=== PATIENT | female | born 1965 | race Hispanic/Latino ===

== ENCOUNTER 2019-04-22 15:39 | Inpatient (IN) | payer OTHER ==
[~2019-04-22] VITALS: Ht 152.4 cm; Wt 78.8 kg
[2019-04-22 16:31] LABS: BASOPHILS % (AUTO) 0.8 % (0.0-5.0); EOSINOPHILS % (AUTO) 1.5 % (0.0-8.0); HEMATOCRIT 38.8 % (36-48); LYMPHOCYTES % (AUTO) 30.4 % (21.0-51.0); MEAN CORPUSCULAR HEMOGLOBIN 26.7 pg (27.0-33.0); MEAN CORPUSCULAR HGB CONC 33.2 g/dL (32.0-36.0); MEAN CORPUSCULAR VOLUME 80.3 fL (79-99); MONOCYTES % (AUTO) 4.7 % (3.0-13.0); NEUTROPHILS % (AUTO) 62.1 % (40.0-77.0); PLATELET COUNT (AUTO) 365 K/uL (130-400); RED BLOOD CELL COUNT(AUTO) 4.83 MIL/uL (4.00-5.50); RED CELL DISTRIBUTION WIDTH 13.5 % (11.0-15.5); WHITE BLOOD COUNT (AUTO) 10.9 K/uL (4.8-10.8)
[2019-04-22 16:50] LABS: CREATININE 0.9 mg/dL (0.5-1.5); POTASSIUM 3.7 mmol/L (3.5-5.1)
[2019-04-22 16:54] LABS: ALBUMIN 3.7 g/dL (3.5-5.0); BILIRUBIN,TOTAL 0.3 mg/dL (0.2-1.0)
[2019-04-22] MEDS ORDERED: ASPIRIN 325 MG TABLET ONE (17:23)
[2019-04-22] MEDS ORDERED: IOHEXOL 350 MG/ML 100ML INFUS..BTL IV ONE (17:47)
[2019-04-22] MEDS ORDERED: ACETAMINOPHEN 325 MG TAB PO PRN ×2 (19:45)
[2019-04-22] MEDS ORDERED: IPRATROPIUM/ALBUTEROL SULFATE 3 ML SOLUTION IH PRN (19:45)
[2019-04-22] MEDS ORDERED: LACTULOSE 20 GM/30 ML UDCUP PO PRN (19:45)
[2019-04-22 21:05] VITALS: BP 137/83
--- NOTE | 2019-04-22 21:05 | NUR ---
NEW ADMIT PATIENT ARRIVED TO ROOM 413 AAOX3 FAMILY AT SIDE. ADMIT FOR NEW ONSET LEFT LUNG MASS. PATIENT STATES SHE ONLY NOTICED PAIN IN INHALATION YESTERDAY BUT DID HAVE AND EPISODE OF COUGHING UP BLOOD ONE NIGHT. SHE HAS NOT HAD ANY COUGHED UP ANY MORE BLOOD SINCE. SHE ALSO STATED SHE HAS HAD AND EPISODE A COUPLE OF DAYS AGO OF MOMENTARY CONFUSION AND UNABLE TO PRONOUNCE WORDS CORRECTLY. PATIENT STATES SHE DOES NOT SUFFER FROM HYPERTENSION , BUT DID WANT TO MENTION ALL OF THIS TO THE MD TOMORROW SINCE SHE DID NOT TELL THE ED DOCTOR THIS.
[2019-04-22] MEDS: MORPHINE SULFATE 2 MG/ML 1ML SYG IV PRN (21:13)
[2019-04-22] MEDS: FAMOTIDINE 20MG TAB 20 MG TAB PO SCH (21:13)
[2019-04-22] MEDS: ONDANSETRON HCL 4 MG/2 ML VIAL IV PRN (21:13)
--- NOTE | 2019-04-22 22:36 | NUR ---
PULMONARY CONSULT SPOKE TO DR DEJAN ESTRADA ABOUT NEW CONSULT FOR PATIENT DIEGO. I DID INFORM HIM OF CT SCAN RESULTS AND HE STATE HE WOULD SEE IN AM AND POSSIBLE TO A BRONCHOSCOPY WITH BIOPSY IN AM.
[2019-04-22 23:55] VITALS: BP 138/81
[2019-04-23] VITALS (26 sets, daily range): BP systolic 105–142; BP diastolic 67–88
[2019-04-23] MEDS: ONDANSETRON HCL 4 MG/2 ML VIAL IV PRN (03:40)
[2019-04-23] MEDS: MORPHINE SULFATE 2 MG/ML 1ML SYG IV PRN ×2 (03:40→23:25)
[2019-04-23 06:00] LABS: EOSINOPHILS % (AUTO) 2.1 % (0.0-8.0); HEMATOCRIT 38.4 % (36-48); LYMPHOCYTES % (AUTO) 37.1 % (21.0-51.0); MEAN CORPUSCULAR HEMOGLOBIN 27.3 pg (27.0-33.0); MEAN CORPUSCULAR HGB CONC 32.8 g/dL (32.0-36.0); MEAN CORPUSCULAR VOLUME 83.1 fL (79-99); MONOCYTES % (AUTO) 6.6 % (3.0-13.0); NEUTROPHILS % (AUTO) 52.7 % (40.0-77.0); PLATELET COUNT (AUTO) 354 K/uL (130-400); RED BLOOD CELL COUNT(AUTO) 4.62 MIL/uL (4.00-5.50); RED CELL DISTRIBUTION WIDTH 13.8 % (11.0-15.5); WHITE BLOOD COUNT (AUTO) 10.6 K/uL (4.8-10.8)
[2019-04-23 06:13] LABS: CREATININE 0.9 mg/dL (0.5-1.5); POTASSIUM 4.3 mmol/L (3.5-5.1)
[2019-04-23 08:41] LABS: INR 0.98 (0.85-1.15); PARTIAL THROMBOPLASTIN TIME 24.8 SEC (26.3-35.5); PROTHROMBIN TIME 10.6 SEC (9.6-11.6)
[2019-04-23] MEDS: ENOXAPARIN SODIUM 40 MG/0.4 ML SYRINGE SQ SCH (09:00)
[2019-04-23] MEDS: FAMOTIDINE 20MG TAB 20 MG TAB PO SCH ×2 (09:00→22:03)
[2019-04-23] MEDS ORDERED: SUCCINYLCHOLINE 200MG/10ML SYR ONE (09:19)
[2019-04-23] MEDS ORDERED: LIDOCAINE PF 2% 5ML ABBOJECT ONE (09:19)
[2019-04-23] MEDS ORDERED: ROCURONIUM 10MG/1ML SYR 10 MG/ML ML ONE (09:19)
[2019-04-23] MEDS ORDERED: PROPOFOL 10 MG/ML 20ML VIAL IV ONE (09:19)
[2019-04-23] MEDS ORDERED: FENTANYL CITRATE PF 50 MCG/1 ML 2ML VIAL ONE (09:20)
[2019-04-23] MEDS ORDERED: GLYCOPYRROLATE 1 MG/5 ML SYRINGE ONE (09:21)
[2019-04-23] MEDS ORDERED: PHENYLEPHRINE HCL 10 MG/ML 1ML VIAL IV ONE (09:40)
[2019-04-23 14:15] LABS: SPECIMENTYPE,BODY FLUID OTHER
[2019-04-23 14:16] LABS: APPEARANCE BODY FLUID CLOUDY (CLEAR); BODY FLUID WBC 321 /cu. mm.; COLOR,BODY FLUID PINK (LT YELLOW); TOTAL VOLUME,BODY FLUID 15 mL
[2019-04-23 14:17] LABS: BODY FLUID RBC 349 /cu. mm.
[2019-04-23 14:19] LABS: BF LYMPHOCYTE 11 %; BF MESOTHELIAL 88 %; BF MONOCYTE 1 %
--- NOTE | 2019-04-23 14:30 | NUR ---
INITIAL SW met with patient. Patient lives with spouse, Percy Sun, [phone]. No home services or DME. Patient is able to complete ADL's and drives. PCP is Dr. Percy Campo at [facility]. Pharmacy is [facility] or [facility] in [place]. DCP is home. Patient has no insurance or benefits. She is a [place] citizen and has worked in the past. Patient was provided with community resources for post hospitalization follow up. Patient was also provided with Good RX card for prescriptions and educated on [facility] $4 medication program and [facility] $5 medication program. Patient is being assisted by [employer] for financial matters. Addendum: 04/23/19 at 1432 by MELINA RUANO SS Amended: Links added.
[2019-04-24] VITALS (7 sets, daily range): BP systolic 123–148; BP diastolic 73–87
[2019-04-24 04:37] LABS: BASOPHILS % (AUTO) 0.7 % (0.0-5.0); EOSINOPHILS % (AUTO) 1.5 % (0.0-8.0); HEMATOCRIT 36.9 % (36-48); LYMPHOCYTES % (AUTO) 34.4 % (21.0-51.0); MEAN CORPUSCULAR HEMOGLOBIN 26.8 pg (27.0-33.0); MEAN CORPUSCULAR HGB CONC 32.2 g/dL (32.0-36.0); MEAN CORPUSCULAR VOLUME 83.1 fL (79-99); MONOCYTES % (AUTO) 5.9 % (3.0-13.0); NEUTROPHILS % (AUTO) 57.1 % (40.0-77.0); PLATELET COUNT (AUTO) 325 K/uL (130-400); RED BLOOD CELL COUNT(AUTO) 4.44 MIL/uL (4.00-5.50); RED CELL DISTRIBUTION WIDTH 13.9 % (11.0-15.5); WHITE BLOOD COUNT (AUTO) 11.3 K/uL (4.8-10.8)
[2019-04-24 05:01] LABS: CREATININE 0.9 mg/dL (0.5-1.5); POTASSIUM 3.8 mmol/L (3.5-5.1)
[2019-04-24] MEDS: ONDANSETRON HCL 4 MG/2 ML VIAL IV PRN (08:23)
[2019-04-24] MEDS: MORPHINE SULFATE 2 MG/ML 1ML SYG IV PRN (08:23)
[2019-04-24] MEDS: FAMOTIDINE 20MG TAB 20 MG TAB PO SCH ×2 (08:33→21:18)
[2019-04-24] MEDS: ENOXAPARIN SODIUM 40 MG/0.4 ML SYRINGE SQ SCH (08:34)
[2019-04-24] MEDS ORDERED: KETOROLAC TROMETHAMINE 15MG/ML IM PRN (18:15)
--- NOTE | 2019-04-25 | NUR ---
Kept patient NPO at this time, patient demonstrated understanding.
[2019-04-25 03:10] VITALS: BP 132/71
[2019-04-25 06:09] LABS: BASOPHILS % (AUTO) 0.9 % (0.0-5.0); EOSINOPHILS % (AUTO) 4.2 % (0.0-8.0); HEMATOCRIT 37.5 % (36-48); LYMPHOCYTES % (AUTO) 33.4 % (21.0-51.0); MEAN CORPUSCULAR HEMOGLOBIN 26.1 pg (27.0-33.0); MEAN CORPUSCULAR HGB CONC 31.5 g/dL (32.0-36.0); MONOCYTES % (AUTO) 7.5 % (3.0-13.0); NEUTROPHILS % (AUTO) 53.4 % (40.0-77.0); PLATELET COUNT (AUTO) 319 K/uL (130-400); RED BLOOD CELL COUNT(AUTO) 4.52 MIL/uL (4.00-5.50); RED CELL DISTRIBUTION WIDTH 13.6 % (11.0-15.5); WHITE BLOOD COUNT (AUTO) 9.6 K/uL (4.8-10.8)
[2019-04-25 06:32] LABS: PARTIAL THROMBOPLASTIN TIME 24.8 SEC (26.3-35.5); PROTHROMBIN TIME 10.8 SEC (9.6-11.6)
[2019-04-25 06:34] LABS: CREATININE 0.8 mg/dL (0.5-1.5); POTASSIUM 3.9 mmol/L (3.5-5.1)
--- NOTE | 2019-04-25 07:54 | NUR ---
Patient remained NPO,obtained consent, endorsed care to incoming NOD using SBAr ,all questions answered.
[2019-04-25 08:01] VITALS: BP 144/89
[2019-04-25] MEDS: FAMOTIDINE 20MG TAB 20 MG TAB PO SCH (08:34)
--- NOTE | 2019-04-25 09:00 | NUR ---
DISCUSSED DC PLAN WITH PATIENT PATIENT OK TO DC POST BIOPSY TODAY PER DR. LANE TO FOLLOW UP IN CLINIC PLAN TO GET [facility] TO COVER COSTS PT IS ACTIVE, HARDWORKING, AND ENERGETIC, STATES FEELS GOOD AND WILL TACKLE ANY UPCOMING CHALLENGES WITH OPTIMISM. NO DEFINITE DIAGNOSIS YET Addendum: 04/25/19 at 1230 by RICHIE COVINGTON RN Amended: Links added.
--- NOTE | 2019-04-25 09:36 | NUR ---
PROCEDURE PATIENT SCHEDULED FOR CT GD LUNG MASS BIOPSY FOR TODAY. PATIENT HAD A BRONCHOSCOPY DONE 04/23/[address] Asael MIRAMONTES NOTIFIED AND RESCHEDULED BIOPSY FOR TOMORROW. OBTAIN PATHOLOGY RESULTS TO DETERMINE IF LUNG BIOPSY IS NEEDED FOR DIAGNOSIS. PROCEDURE OUTCOME REPORTED TO Luis Armando HERNANDES RN.
--- NOTE | 2019-04-25 10:00 | NUR ---
PROCEDURE PATHOLOGY REPORT FROM BRONCHOSCOPY REPORTED NO MALIGNANCY FROM SAMPLES. DR Monico LANE SPOKE WITH DR MIRAMONTES AND PATIENT TRANSPORTED TO CT FOR LT LUNG BIOPSY. Luis Armando HERNANDES RN NOTIFIED.
[2019-04-25] MEDS ORDERED: LIDOCAINE HCL 1% 10 ML VIAL ONE (11:00)
--- NOTE | 2019-04-25 11:15 | NUR ---
CT GD LT LUNG BX BX PROCEDURE PERFORMED BY DR Temitope RASHID. PUNCTURE SITE LT CHEST AND PATIENT TOLERATED PROCEDURE WELL. SPECIMEN X 4 COLLECTED AND SENT TO LAB. END OF PROCEDURE AT 1050. BIOPSY NEEDLE REMOVED AND DRESSING APPLIED. NO BLEEDING NOTED. REPORT GIVEN TO Luis Armando HERNANDES RN AND PATIENT TRANSPORTED TO [facility] VIA BED AT 1115. AAO X3 WITH NO C/O PAIN.
[2019-04-25 11:30] VITALS: BP 140/77
[2019-04-25 11:45] VITALS: BP 142/77
[2019-04-25 12:00] VITALS: BP 145/84
[2019-04-25 12:15] VITALS: BP 138/74
[2019-04-25] MEDS ORDERED: KETO10 PO (14:13)
--- NOTE | 2019-04-25 17:09 | NUR ---
Dc'd to self care after SL removed intact; written and verbal instructions provided, prescription to preferred pharmacy electronically. Transported to private car via w/c without incident.
== END 2019-04-25 17:17 | disposition home or self-care (01) | DRG 167 ==
LOC: EDH 15:39 → EDHIP 15:40 → OBSVTOIN 15:40 → 4CH 20:35
PROVIDERS: ADMIT Internal Medicine; ATTEND Internal Medicine
PROC: 0BBH8ZX Excision of Lung Lingula, Via Natural or Artificial Opening Endoscopic, Diagnostic (ICD-10-PCS; 2019-04-23)
PROC: 0B9H8ZX Drainage of Lung Lingula, Via Natural or Artificial Opening Endoscopic, Diagnostic (ICD-10-PCS; 2019-04-23)
PROC: 0BDH8ZX Extraction of Lung Lingula, Via Natural or Artificial Opening Endoscopic, Diagnostic (ICD-10-PCS; 2019-04-23)
PROC: 0BBL3ZX Excision of Left Lung, Percutaneous Approach, Diagnostic (ICD-10-PCS; principal; 2019-04-25)
DX: R91.8 Other nonspecific abnormal finding of lung field (principal); J94.2 Hemothorax
CPT/HCPCS: 31622; 31623; 31628; 32405; 36415; 71045; 71275; 76000; 80048; 80053; 82550; 84484; 85025; 85378; 85610; 85730; 87071; 87116; 87205; 87206; 88173; 88305; 88312; 89051; 93005; 94664; A4606; G0378; J0330; J1650; J1885; J2001; J2370; J2405; J2704; J3010; J3490; J7030; Q9967

== ENCOUNTER 2019-07-19 13:00 | Inpatient (IN) | payer MEDICAID ==
[~2019-07-19] VITALS: Ht 152.4 cm; Wt 84.1 kg
[2019-07-19 11:06] VITALS: BP 152/75
[2019-07-19 13:59] LABS: BASOPHILS % (AUTO) 0.6 % (0.0-5.0); EOSINOPHILS % (AUTO) 1.8 % (0.0-8.0); HEMATOCRIT 36.8 % (36-48); LYMPHOCYTES % (AUTO) 27.6 % (21.0-51.0); MEAN CORPUSCULAR HEMOGLOBIN 27.6 pg (27.0-33.0); MEAN CORPUSCULAR HGB CONC 32.3 g/dL (32.0-36.0); MEAN CORPUSCULAR VOLUME 85.4 fL (79-99); NEUTROPHILS % (AUTO) 63.5 % (40.0-77.0); PLATELET COUNT (AUTO) 479 K/uL (130-400); RED BLOOD CELL COUNT(AUTO) 4.31 MIL/uL (4.00-5.50); RED CELL DISTRIBUTION WIDTH 14.9 % (11.0-15.5); WHITE BLOOD COUNT (AUTO) 11.4 K/uL (4.8-10.8)
[2019-07-19 14:13] LABS: ALBUMIN 3.8 g/dL (3.5-5.0); BILIRUBIN,TOTAL 0.3 mg/dL (0.2-1.0); CREATININE 0.8 mg/dL (0.5-1.5); POTASSIUM 3.7 mmol/L (3.5-5.1); TOTAL PROTEIN, SERUM 8.6 g/dL (6.0-8.3)
[2019-07-19 14:17] LABS: INR 1.01 (0.85-1.15); PARTIAL THROMBOPLASTIN TIME 27.9 SEC (26.3-35.5); PROTHROMBIN TIME 10.9 SEC (9.6-11.6)
--- NOTE | 2019-07-20 10:43 | NUR ---
RE: ABNORMAL LABS REPORTED LABS TO MEGHAN DONIS RN (WBC 11.4. HGB 11.9/HCT 36.8, PLT 479) NO NEW ORDERS RECEIVED. MAY PROCEED WITH SURGERY.
[2019-07-23] VITALS (22 sets, daily range): BP systolic 90–145; BP diastolic 45–84
[2019-07-23] MEDS ORDERED: LACTATED RINGERS 1000ML 1,000 ML IV ONE (11:04)
[2019-07-23] MEDS ORDERED: CEFUROXIME SODIUM 1.5 GM VIAL ONE (11:04)
[2019-07-23] MEDS ORDERED: DEXAMETHASONE SOD PHOSPHATE 10MG/ML 1ML VIAL ONE (12:38)
[2019-07-23] MEDS ORDERED: LIDOCAINE PF 2% 5ML ABBOJECT ONE (12:38)
[2019-07-23] MEDS ORDERED: ONDANSETRON HCL 4 MG/2 ML VIAL ONE (12:38)
[2019-07-23] MEDS ORDERED: GLYCOPYRROLATE 1 MG/5 ML SYRINGE ONE (12:39)
[2019-07-23] MEDS ORDERED: FENTANYL CITRATE PF 50 MCG/1 ML 2ML VIAL ONE (12:39)
[2019-07-23] MEDS ORDERED: KETAMINE 50MG/ML SYRINGE 50 MG/ML DISP.SYRIN IV ONE (12:39)
[2019-07-23] MEDS ORDERED: PROPOFOL 10 MG/ML 20ML VIAL IV ONE (12:39)
[2019-07-23] MEDS ORDERED: ROCURONIUM 10MG/1ML SYR 10 MG/ML ML ONE ×2 (12:39→13:44)
[2019-07-23] MEDS ORDERED: NEOSTIGMINE 5MG/5ML SYR IV ONE (12:39)
[2019-07-23] MEDS ORDERED: MIDAZOLAM HCL 1 MG/ML 2ML VIAL ONE (12:39)
[2019-07-23] MEDS ORDERED: ACETAMINOPHEN 325 MG TAB PO PRN (13:30)
[2019-07-23] MEDS ORDERED: EPHEDRINE SULFATE 50 MG/ML AMPULE ONE (13:41)
[2019-07-23] MEDS ORDERED: CEFAZOLIN SODIUM 1 GM VIAL ONE (14:03)
[2019-07-23] MEDS ORDERED: ROPIVACAINE 0.5% 5MG/ML 30ML IJ ONE (14:22)
[2019-07-23] MEDS ORDERED: Q-PUMP 1 EACH IRRIG SCH (14:30)
[2019-07-23] MEDS ORDERED: FENTANYL CITRATE PF 50 MCG/1 ML 5ML AMP IV ONE (14:31)
[2019-07-23] MEDS ORDERED: MEPERIDINE-PF 25 MG/ML SYG ONE (15:03)
--- NOTE | 2019-07-23 16:30 | NUR ---
NOTE ARRIVED FROM PACU. 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 [facility]. TWO CHEST TUBES Y CONNECT TO WATER SEAL SYSTEM, CONNECTED TO 20 CM WATER SUCTION. NO LEAKS DETECTED. DRAINAGE AMOUNT AT 115 CC LINE. F/C NO URINE PRESENT. SL LAF AND DRESSING TO LEFT UPPER ARM FROM BRACHIAL A-LINE THAT WAS PRESENT THERE DURING SURGERY BUT WAS REMOVED PRIOR TO BRINGING THE PATIENT UP TO FOURTH FLOOR RM 416. PATIENT AWAKE, ALERT ORIENTED X3. A LITTLE NERVOUS AND IN A LOT OF PAIN. PAIN PUMP WITH BUPIVICAINE STARTED AT 6CC/HR TO SMALL CHEST CATHETER PRESENT. WILL START MEDICATING PRN PAIN NOW. PACU NURSE WAS HESITANT TO START IT PACU BECAUSE HER SYSTOLIC BP WAS ONLY IN THE LOW 90'S. SISTER AT HER SIDE.
[2019-07-23] MEDS ORDERED: KETOROLAC TROMETHAMINE 30MG/ML ONE (16:48)
[2019-07-23] MEDS ORDERED: TRAMADOL HCL 50 MG TABLET ONE (17:35)
[2019-07-23] MEDS: KETOROLAC TROMETHAMINE 30MG/ML IV SCH (18:00)
--- NOTE | 2019-07-23 19:04 | NUR ---
NOTE NOTIFIED DR AVITIA ABOUT CONSULT. HE WILL SEE HER TOMORROW. WAS STARTED ON CLEAR LIQUIDS WILL ADVANCE TOLERATED. SPOKE TO MEGHAN WITH DR VU ABOUT C/O SEVERE PAIN BUT THEY WILL NOT ORDER ANYTHING EXTRA BECAUSE THEY'RE WORRIED ABOUT HEMODYNAMIC IMBALANCE DUE TO IV NARCOTIC.
[2019-07-23] MEDS: TRAMADOL HCL 50 MG TABLET PO PRN (19:31)
[2019-07-23] MEDS: CEFAZOLIN SODIUM 1 GM VIAL IVP SCH (20:08)
[2019-07-24] MEDS: KETOROLAC TROMETHAMINE 30MG/ML IV SCH ×5 (00:31→23:59)
[2019-07-24] MEDS: TRAMADOL HCL 50 MG TABLET PO PRN ×2 (01:44→10:16)
[2019-07-24 03:34] VITALS: BP 105/68
[2019-07-24] MEDS: CEFAZOLIN SODIUM 1 GM VIAL IVP SCH ×2 (04:20→12:09)
[2019-07-24 04:26] LABS: HEMATOCRIT 30.2 % (36-48); MEAN CORPUSCULAR HEMOGLOBIN 27.8 pg (27.0-33.0); MEAN CORPUSCULAR HGB CONC 32.5 g/dL (32.0-36.0); MEAN CORPUSCULAR VOLUME 85.6 fL (79-99); RED BLOOD CELL COUNT(AUTO) 3.53 MIL/uL (4.00-5.50); WHITE BLOOD COUNT (AUTO) 13.9 K/uL (4.8-10.8)
[2019-07-24 04:46] LABS: CREATININE 0.9 mg/dL (0.5-1.5); POTASSIUM 4.9 mmol/L (3.5-5.1)
[2019-07-24] MEDS ORDERED: ONDANSETRON HCL 4 MG/2 ML VIAL ONE (05:13)
[2019-07-24] MEDS ORDERED: ONDANSETRON HCL 4 MG/2 ML VIAL IVP STA (05:19)
--- NOTE | 2019-07-24 07:45 | NUR ---
AM ASSESSMENT PT LAYING IN BED, WATCHING TV. A/O X 3. NO SOB. NO DISTRESS NOTED, O2 NC @ 2L. DENIES CHEST PAIN OR DISCOMFORT. DENIES PALPITATIONS. TELE: -JUAREZ. C/O INCISIONAL DISCOMFORT, DENIES INCISIONAL PAIN @ THIS TIME. STERNAL INCISION DSG DRY & INTACT. NO DRAINAGE NOTED. CHEST TUBE PATENT & DRAINING. NO AIR LEAK. CHEST TUBE TO SUCTION @ 20 ML. DSG DRY & INTACT. Q PUMP IN PLACE, @ 6 ML/HR. STERNAL PRECAUTIONS REINFORCED. IS @ 550 ML. PURPOSE & IMPORTANCE OF IS REINFORCED. DIET TO BE ADVANCED TO SOLIDS THIS AM. DENIES N/V AND/OR DIARRHEA. UP W/ASSISTANCE. INSTRUCTED TO CALL FOR ASSISTANCE. CALL GÓMEZ W/IN REACH.
[2019-07-24 08:45] VITALS: BP 101/58
[2019-07-24 10:47] VITALS: BP 115/67
--- NOTE | 2019-07-24 12:41 | NUR ---
DCP CM met with pt in room discussed dc plans. Pt is independent prior to admission, lives at home with spouse. Denies any equipments/services. Feels safe to go back home, spouse able to assist with transportation and needs as necessary. DC plan to home once stable. CM to cont to follow up. Addendum: 07/24/19 at 1243 by ELIZABETH MURCIA LVN CM Amended: Links added.
[2019-07-24 16:20] VITALS: BP 106/64
--- NOTE | 2019-07-24 16:20 | NUR ---
PULSE PULSE RECORDED 42, CORRECTION PULSE 88.
[2019-07-24 20:16] VITALS: BP 106/59
[2019-07-24 23:35] VITALS: BP 118/61
[2019-07-25] MEDS: TRAMADOL HCL 50 MG TABLET PO PRN ×3 (00:19→20:43)
[2019-07-25 04:26] VITALS: BP 116/66
[2019-07-25] MEDS: KETOROLAC TROMETHAMINE 30MG/ML IV SCH ×3 (06:03→18:12)
[2019-07-25 08:00] VITALS: BP 106/64
[2019-07-25 12:04] VITALS: BP_SYST 106; BP_SYST 110; BP_DIAS 64; BP_DIAS 67
[2019-07-25] MEDS: POLYETHYLENE GLYCOL 3350 17 GM POWD.PACK PO PRN (14:23)
[2019-07-25 16:00] VITALS: BP 113/60
--- NOTE | 2019-07-25 18:55 | NUR ---
Received report pt,with left sided chest tube to water seal and with Q pump infusing @12ml/hr.
[2019-07-25] MEDS: DOCUSATE SODIUM 100 MG CAP PO SCH (20:37)
[2019-07-25 20:48] VITALS: BP 110/53
[2019-07-26] MEDS: KETOROLAC TROMETHAMINE 30MG/ML IV SCH
[2019-07-26 00:31] VITALS: BP 99/57
[2019-07-26] MEDS: TRAMADOL HCL 50 MG TABLET PO PRN ×4 (02:57→22:56)
[2019-07-26 04:22] VITALS: BP 108/63
[2019-07-26 08:00] VITALS: BP 118/65
[2019-07-26] MEDS: DOCUSATE SODIUM 100 MG CAP PO SCH ×2 (09:37→21:02)
[2019-07-26 11:51] VITALS: BP 123/63
[2019-07-26 16:00] VITALS: BP 115/69
[2019-07-26 20:00] VITALS: BP 132/70
[2019-07-27] VITALS (7 sets, daily range): BP systolic 111–127; BP diastolic 63–75
[2019-07-27] MEDS: TRAMADOL HCL 50 MG TABLET PO PRN ×4 (02:56→22:57)
[2019-07-27] MEDS: DOCUSATE SODIUM 100 MG CAP PO SCH ×2 (09:21→20:30)
[2019-07-27] MEDS: POLYETHYLENE GLYCOL 3350 17 GM POWD.PACK PO PRN (09:22)
[2019-07-27] MEDS ORDERED: ENOXAPARIN SODIUM 30 MG/0.3 ML SQ SCH (21:00)
--- NOTE | 2019-07-28 02:09 | NUR ---
Patient resting well, respirations even and non labored.Call light placed within reach.
[2019-07-28 03:21] VITALS: BP 122/72
[2019-07-28] MEDS: TRAMADOL HCL 50 MG TABLET PO PRN ×2 (05:13→13:06)
--- NOTE | 2019-07-28 07:45 | NUR ---
ASSESSMENT ENCOUNTERED PT A&OX3, CALM COOPERATIVE AND DOES NOT APPEAR TO BE IN ANY DISTRESS NOR ANY NEURO DEFICITS PRESENT. PT DENIES DIZZINESS, LIGHTHEADEDNESS BUT DOES C/O DYSPNEA ON EXERTION. STERNAL DRESSING DRY AND INTACT, CHEST TUBE SITES DRY AND INTACT. PT IS AMBULATORY, GAIT SLOW BUT STEADY WITH ASSIST. CALL LIGHT WITHIN REACH, FAMILY AT BEDSIDE.
[2019-07-28 08:00] VITALS: BP 125/68
[2019-07-28 11:39] VITALS: BP 116/72
[2019-07-28 16:00] VITALS: BP 129/77
--- NOTE | 2019-07-28 17:51 | NUR ---
DISCHARGE INSTRUCTIONS GIVEN, PIV REMOVED AND INTACT, CHEST TUBE SUTURES REMOVED AND STERI STRIPS APPLIED, DISCHARGED HOME TO FAMILY VEHICLE VIA WHEELCHAIR.
== END 2019-07-28 17:56 | disposition home or self-care (01) | DRG 651 ==
LOC: EDSTATUS 13:00 → DAHIP 07-23 10:30 → 4CH 07-23 16:50
PROVIDERS: ADMIT Thoracic Surgery (Cardiothoracic Vascular Surgery); ATTEND Thoracic Surgery (Cardiothoracic Vascular Surgery)
PROC: 0BBG0ZZ Excision of Left Upper Lung Lobe, Open Approach (ICD-10-PCS; 2019-07-23)
PROC: 02BN0ZZ Excision of Pericardium, Open Approach (ICD-10-PCS; principal; 2019-07-23 12:29)
PROC: 07TM0ZZ Resection of Thymus, Open Approach (ICD-10-PCS; 2019-07-23 12:29)
PROC: 0BBH0ZZ Excision of Lung Lingula, Open Approach (ICD-10-PCS; 2019-07-23 12:29)
DX: D15.0 Benign neoplasm of thymus (principal); D64.9 Anemia, unspecified; D72.829 Elevated white blood cell count, unspecified; E78.00 Pure hypercholesterolemia, unspecified; E87.70 Fluid overload, unspecified; R91.8 Other nonspecific abnormal finding of lung field; R09.02 Hypoxemia; Z88.2 Allergy status to sulfonamides; Z88.8 Allergy status to other drugs, medicaments and biological substances
CPT/HCPCS: 36415; 71045; 71046; 80048; 80053; 85025; 85027; 85610; 85730; 88184; 88185; 88305; 88307; 93005; 94010; 97039; A7048; G0378; J0690; J0697; J1100; J1650; J1885; J2001; J2175; J2250; J2405; J2704; J2710; J2795; J3010; J3490; J7030; J7040; J7120

== ENCOUNTER 2019-12-30 22:41 | Emergency (ER) | payer MEDICAID ==
[~2019-12-30 22:41] MED LIST: GABA-533 PO
[2019-12-31 00:12] LABS: APPEARANCE,URINE Cloudy (CLEAR); BILIRUBIN,URINE Negative (NEGATIVE); COLOR,URINE Yellow (YELLOW); GLUCOSE, URINE (UA) Negative (NEGATIVE); KETONES,URINE Negative (NEGATIVE); LEUKOCYTE ESTERASE ,URINE Moderate (NEGATIVE); NITRATE,URINE Negative (NEGATIVE); OCCULT BLOOD,URINE Nonhemolyzed Trace (NEGATIVE); PH,URINE 5.5 (5.0-8.0); PROTEIN,URINE Trace mg/dL (NEGATIVE)
[2019-12-31 00:21] LABS: CREATININE 0.8 mg/dL (0.5-1.5); POTASSIUM 3.9 mmol/L (3.5-5.1)
[2019-12-31 00:23] LABS: INR 1.06 (0.85-1.15); PARTIAL THROMBOPLASTIN TIME 25.2 SEC (26.3-35.5); PROTHROMBIN TIME 11.4 SEC (9.6-11.6)
[2019-12-31 00:25] LABS: ALBUMIN 3.3 g/dL (3.5-5.0); BILIRUBIN,TOTAL 0.2 mg/dL (0.2-1.0)
[2019-12-31 00:39] LABS: BASOPHILS % (AUTO) 1.1 % (0.0-5.0); EOSINOPHILS % (AUTO) 2.8 % (0.0-8.0); LYMPHOCYTES % (AUTO) 11.7 % (21.0-51.0); MEAN CORPUSCULAR HGB CONC 30.9 g/dL (32.0-36.0); MEAN CORPUSCULAR VOLUME 77.6 fL (79-99); MONOCYTES % (AUTO) 6.2 % (3.0-13.0); NEUTROPHILS % (AUTO) 77.6 % (40.0-77.0); PLATELET COUNT (AUTO) 434 K/uL (130-400); RED BLOOD CELL COUNT(AUTO) 4.25 MIL/uL (4.00-5.50); RED CELL DISTRIBUTION WIDTH 15.8 % (11.0-15.5); WHITE BLOOD COUNT (AUTO) 10.7 K/uL (4.8-10.8)
[2019-12-31 00:42] LABS: BACTERIA,URINE Moderate /HPF (None Seen); MUCUS,URINE Moderate LPF (None Seen); SQUAMOUS EPITHELIAL CELL,UR Few /HPF (0-2); WBC,URINE 26-50 /HPF (0-1)
[2019-12-31] MEDS ORDERED: CEFTRIAXONE SODIUM 2 GM VIAL ONE (01:05)
[2019-12-31] MEDS ORDERED: SODIUM CHLORIDE 0.9% 50 ML IV ONE (01:06)
[2019-12-31] MEDS ORDERED: IOHEXOL 350 MG/ML 100ML INFUS..BTL IV ONE (01:17)
== END 2019-12-31 02:50 | disposition home or self-care (01) ==
LOC: EDH 22:41
DX: N39.0 Urinary tract infection, site not specified (principal); K59.00 Constipation, unspecified; J90 Pleural effusion, not elsewhere classified; R91.1 Solitary pulmonary nodule; Z88.1 Allergy status to other antibiotic agents; Z88.8 Allergy status to other drugs, medicaments and biological substances; Z98.890 Other specified postprocedural states
CPT/HCPCS: 36415 ×2; 71045; 71260; 74177; 80053; 81001; 83605; 83690; 84484; 85025; 85610; 85730; 87040 ×2; 87088; 93005; 96374; 99285; J0696; Q9967

== ENCOUNTER 2020-01-19 22:39 | Inpatient (IN) | payer MEDICAID ==
[~2020-01-19] VITALS: Ht 152.4 cm; Wt 64.9 kg
[2020-01-19] MEDS ORDERED: ASPIRIN 325 MG TABLET ONE (23:32)
[2020-01-19] MEDS ORDERED: MORPHINE SULFATE 2 MG/ML 1ML SYG ONE (23:33)
[2020-01-19] MEDS ORDERED: NITROGLYCERIN 1GM/1 INCH PACKET TD ONE (23:33)
[2020-01-19 23:35] LABS: BASOPHILS % (AUTO) 0.2 % (0.0-5.0); EOSINOPHILS % (AUTO) 0.1 % (0.0-8.0); HEMATOCRIT 25.7 % (36-48); LYMPHOCYTES % (AUTO) 2.2 % (21.0-51.0); MEAN CORPUSCULAR HGB CONC 31.1 g/dL (32.0-36.0); MEAN CORPUSCULAR VOLUME 76.9 fL (79-99); MONOCYTES % (AUTO) 0.9 % (3.0-13.0); NEUTROPHILS % (AUTO) 88.8 % (40.0-77.0); NUCLEATED RED BLOOD CELLS 0.3 % (0.0-0.19); PLATELET COUNT (AUTO) 150 K/uL (130-400); RED BLOOD CELL COUNT(AUTO) 3.34 MIL/uL (4.00-5.50); RED CELL DISTRIBUTION WIDTH 16.1 % (11.0-15.5); WHITE BLOOD COUNT (AUTO) 16.2 K/uL (4.8-10.8)
[2020-01-19] MEDS ORDERED: IOHEXOL 350 MG/ML 100ML INFUS..BTL IV ONE (23:36)
[2020-01-19] MEDS ORDERED: HEPARIN SODIUM 1000UNIT/ML 10ML VIAL ONE (23:36)
[2020-01-19] MEDS ORDERED: IOHEXOL-350 50ML VIAL IV ONE (23:36)
[2020-01-19] MEDS ORDERED: LIDOCAINE HCL 2% 20ML ONE (23:36)
[2020-01-19 23:47] LABS: INR 1.06 (0.85-1.15); PARTIAL THROMBOPLASTIN TIME 27.3 SEC (26.3-35.5); PROTHROMBIN TIME 11.4 SEC (9.6-11.6)
[2020-01-19 23:50] LABS: ALBUMIN 3.2 g/dL (3.5-5.0); BILIRUBIN,TOTAL 0.4 mg/dL (0.2-1.0); TOTAL PROTEIN, SERUM 7.8 g/dL (6.0-8.3)
[2020-01-19] MEDS ORDERED: MIDAZOLAM HCL 5 MG/ML 2ML VIAL IV ONE (23:55)
[2020-01-19] MEDS ORDERED: SODIUM CHLORIDE 0.9% 1000ML 1,000 ML IV ONE (23:58)
[2020-01-20 00:02] LABS: POTASSIUM 9.4 mmol/L (3.5-5.1)
[2020-01-20 00:03] LABS: CREATININE 9.5 mg/dL (0.5-1.5)
[2020-01-20] MEDS ORDERED: INSULIN HUMULIN R 100 UNIT/ML 3ML ONE ×2 (00:04→00:15)
[2020-01-20 00:05] LABS: RAPID GROUP A STREP NEGATIVE (NEGATIVE)
[2020-01-20 00:05] LABS: B-TYPE NATRIURETIC PEPTIDE 502 pg/mL (0-100)
[2020-01-20] MEDS ORDERED: NOREPINEPHRINE 4MG/NS 250ML 250 ML IV ONE ×3 (00:05→16:12)
[2020-01-20] MEDS ORDERED: DEXTROSE 50%-WATER 50 ML DISP.SYRIN IV ONE ×3 (00:07→04:46)
[2020-01-20] MEDS ORDERED: IOHEXOL-350 75 ML VIAL IV ONE (00:09)
[2020-01-20] MEDS ORDERED: SODIUM CHLORIDE 0.9% 100 ML IV ONE (00:15)
[2020-01-20] MEDS ORDERED: MIDAZOLAM HCL 5 MG/ML 2ML VIAL IV ONE (00:19)
[2020-01-20 00:21] LABS: CRP QUANTITATIVE 187.9 mg/L (0.00-9.0)
[2020-01-20] MEDS ORDERED: FENTANYL 2500MCG+NS 250ML 250 ML IV ONE (00:37)
[2020-01-20 00:38] LABS: ABG BASE EXCESS -18.4 mmol/L (-2.0-3.0); ABG HCO3 10.1 mmol/L (21.0-28.0); ABG OXYGEN SATURATION 98.2 % (95.0-99.0); ABG PCO2 34 mmHg (32-45)
[2020-01-20] MEDS ORDERED: SODIUM BICARB 50MEQ 50ML VIAL 100 ML ONE (00:42)
[2020-01-20 00:46] LABS: POTASSIUM 8.5 mmol/L (3.5-5.1)
[2020-01-20] MEDS ORDERED: SODIUM POLYSTYRENE SULFONATE 15 GM/60 ML ML ONE ×2 (00:50→00:57)
[2020-01-20] MEDS ORDERED: FAMOTIDINE/PF 20 MG/2 ML VIAL IV ONE (00:51)
[2020-01-20] MEDS ORDERED: DEXTROSE 5 % AND 0.9 % NACL 1,000 ML IV ONE (01:02)
[2020-01-20] MEDS ORDERED: GLUCAGON 1MG KIT 1 MG ML IM PRN (02:15)
[2020-01-20 04:19] LABS: BASOPHILS % (AUTO) 0.1 % (0.0-5.0); LYMPHOCYTES % (AUTO) 1.5 % (21.0-51.0); MEAN CORPUSCULAR HEMOGLOBIN 24.6 pg (27.0-33.0); MEAN CORPUSCULAR VOLUME 76.9 fL (79-99); NEUTROPHILS % (AUTO) 96.6 % (40.0-77.0); NUCLEATED RED BLOOD CELLS 0.2 % (0.0-0.19); PLATELET COUNT (AUTO) 138 K/uL (130-400); WHITE BLOOD COUNT (AUTO) 9.8 K/uL (4.8-10.8)
[2020-01-20 04:33] LABS: ABG BASE EXCESS -13.8 mmol/L (-2.0-3.0); ABG HCO3 15.2 mmol/L (21.0-28.0); ABG PCO2 47 mmHg (32-45)
[2020-01-20] MEDS ORDERED: SODIUM BICARB 50MEQ 50ML VIAL 50 ML ONE ×2 (04:42→04:44)
[2020-01-20 05:09] LABS: CREATININE 9.2 mg/dL (0.5-1.5); POTASSIUM 6.9 mmol/L (3.5-5.1)
[2020-01-20] MEDS ORDERED: SODIUM CHLORIDE 0.9% 1000ML 1,000 ML IV ONE ×2 (05:49→16:09)
[2020-01-20] MEDS: INSULIN HUMULIN R 100 UNIT/ML 3ML SQ SCH ×3 (06:00→18:00)
[2020-01-20 06:10] LABS: HEMOGLOBIN A1C 5.5 % (4.0-6.0)
[2020-01-20 06:11] LABS: ALBUMIN 2.6 g/dL (3.5-5.0)
[2020-01-20 06:25] LABS: % IRON SATURATION 53.1 % (22-44)
[2020-01-20] MEDS ORDERED: HEPARIN SODIUM 5000UNIT/ML 1ML VIAL ONE (07:47)
[2020-01-20] MEDS ORDERED: ENOXAPARIN SODIUM 30 MG/0.3 ML SQ SCH (09:00)
[2020-01-20] MEDS ORDERED: FAMOTIDINE/PF 20 MG/2 ML VIAL IV SCH (09:00)
[2020-01-20] MEDS ORDERED: SODIUM CHLORIDE 0.9% 1000ML 2,000 ML IV ONE (10:13)
[2020-01-20 10:24] LABS: HEMATOCRIT 28.2 % (36-48)
[2020-01-20 10:32] LABS: CREATININE 6.3 mg/dL (0.5-1.5); POTASSIUM 4.4 mmol/L (3.5-5.1)
[2020-01-20] MEDS: SODIUM CHLORIDE 0.9% 1000ML 1,000 ML IV SCH ×2 (10:45→20:45)
[2020-01-20] MEDS ORDERED: VANCOMYCIN HCL 1 GM VIAL IV SCH (10:45)
[2020-01-20] MEDS ORDERED: PROPOFOL 1000 MG/100 ML 100 ML IV ONE ×2 (10:50→20:45)
[2020-01-20 11:07] LABS: ABG BASE EXCESS -1.6 mmol/L (-2.0-3.0); ABG HCO3 20.3 mmol/L (21.0-28.0); ABG OXYGEN SATURATION 98.6 % (95.0-99.0); ABG PCO2 27 mmHg (32-45)
[2020-01-20] MEDS ORDERED: VANCOMYCIN 1GM+NS 250ML 250 ML IV SCH (11:15)
[2020-01-20] MEDS ORDERED: VANCOMYCIN 1GM+NS 250ML 250 ML IV ONE (13:09)
[2020-01-20 13:17] LABS: CREATININE 6.3 mg/dL (0.5-1.5); POTASSIUM 4.3 mmol/L (3.5-5.1)
[2020-01-20 21:40] VITALS: BP 123/75
[2020-01-20 22:20] VITALS: BP 125/70
[2020-01-20 23:00] VITALS: BP 122/76
[2020-01-21] VITALS (54 sets, daily range): BP systolic 92–144; BP diastolic 39–85
[2020-01-21] MEDS ORDERED: ONDA8TAB12 PO (00:23)
[2020-01-21] MEDS ORDERED: HYDR-3421 PO (00:30)
[2020-01-21] MEDS ORDERED: PROPOFOL 1000 MG/100 ML 100 ML IV ONE ×2 (00:57→04:59)
[2020-01-21] MEDS ORDERED: NOREPINEPHRINE BITARTRATE 1 MG/1 ML ML IV ONE (01:38)
[2020-01-21] MEDS ORDERED: SODIUM CHLORIDE 0.9% 250 ML IV ONE (01:39)
[2020-01-21] MEDS ORDERED: FENTANYL CITRATE PF 0.05 MG/ML 1,000 MCG in SODIUM CHLORIDE 0.9% 100 ML IVPB SCH (02:00)
[2020-01-21 03:44] LABS: HEMATOCRIT 23.1 % (36-48); MEAN CORPUSCULAR HEMOGLOBIN 25.7 pg (27.0-33.0); MEAN CORPUSCULAR HGB CONC 32.9 g/dL (32.0-36.0); PLATELET COUNT (AUTO) 116 K/uL (130-400); RED BLOOD CELL COUNT(AUTO) 2.96 MIL/uL (4.00-5.50); RED CELL DISTRIBUTION WIDTH 17.3 % (11.0-15.5); WHITE BLOOD COUNT (AUTO) 9.4 K/uL (4.8-10.8)
[2020-01-21 04:12] LABS: CREATININE 7.3 mg/dL (0.5-1.5); POTASSIUM 4.8 mmol/L (3.5-5.1)
[2020-01-21 04:32] LABS: PHOSPHORUS 16.3 mg/dL (2.5-4.9)
[2020-01-21 05:58] LABS: LYMPHOCYTES % (MANUAL) 2 % (22-44); MAN.DIFF COMMENT-IMPRESSION MANUAL DIFFERENTIAL; MONOCYTES % (MANUAL) 1 % (2-9); PLATELET MORPHOLOGY COMMENT SLIGHTLY DECREASED; SEGMENTED NEUTROPHILS % 97 % (40-70)
[2020-01-21] MEDS: INSULIN HUMULIN R 100 UNIT/ML 3ML SQ SCH ×4 (06:00→18:00)
[2020-01-21] MEDS: SODIUM CHLORIDE 0.9% 1000ML 1,000 ML IV SCH (06:45)
[2020-01-21 09:26] LABS: ABG BASE EXCESS -9.8 mmol/L (-2.0-3.0); ABG HCO3 16.5 mmol/L (21.0-28.0); ABG OXYGEN SATURATION 96.2 % (95.0-99.0); ABG PCO2 38 mmHg (32-45)
[2020-01-21] MEDS ORDERED: CALCIUM GLUCONATE 1 GM in SODIUM CHLORIDE 0.9% 50 ML IV SCH (10:00)
[2020-01-21] MEDS ORDERED: PROPOFOL 1000 MG/100 ML IV PRN (10:30)
[2020-01-21] MEDS: PANTOPRAZOLE 40 MG/VIAL IVP SCH ×2 (12:19→20:17)
[2020-01-21] MEDS: CEFTRIAXONE SODIUM 1 GM IVP SCH (12:30)
[2020-01-21 13:01] LABS: HEMATOCRIT 22.6 % (36-48)
[2020-01-21 13:39] LABS: CREATININE,URINE RANDOM 40 mg/dL (30-135); SODIUM,URINE RANDOM 87 mmol/l (40-220)
[2020-01-21 13:44] LABS: APPEARANCE,URINE TURBID (CLEAR); BILIRUBIN,URINE NEGATIVE (NEGATIVE); COLOR,URINE YELLOW (YELLOW); GLUCOSE, URINE (UA) NEGATIVE (NEGATIVE); KETONES,URINE NEGATIVE (NEGATIVE); LEUKOCYTE ESTERASE ,URINE LARGE (NEGATIVE); NITRATE,URINE NEGATIVE (NEGATIVE); OCCULT BLOOD,URINE LARGE (NEGATIVE); PROTEIN,URINE 100 mg/dL (NEGATIVE); UROBILINOGEN,URINE 0.2 mg/dL (0.2-1.0)
[2020-01-21 13:59] LABS: BACTERIA,URINE Many /HPF (None Seen); RBC,URINE >100 /HPF (0-1); SQUAMOUS EPITHELIAL CELL,UR Few /HPF (0-2)
[2020-01-21] MEDS ORDERED: HEPARIN SODIUM 5000UNIT/ML 1ML VIAL ONE (15:24)
[2020-01-21] MEDS: PHARMACY COMMUNICATION MISC SCH (17:00)
[2020-01-21 18:13] LABS: HEMATOCRIT 22.2 % (36-48)
[2020-01-21] MEDS: PROPOFOL 1000 MG/100 ML 100 ML IV PRN (20:19)
[2020-01-22] VITALS (24 sets, daily range): BP systolic 91–153; BP diastolic 45–91
[2020-01-22] MEDS: PHARMACY COMMUNICATION MISC SCH ×6 (01:00→23:57)
[2020-01-22 01:36] LABS: BASOPHILS % (AUTO) 0.5 % (0.0-5.0); EOSINOPHILS % (AUTO) 1.1 % (0.0-8.0); LYMPHOCYTES % (AUTO) 9.3 % (21.0-51.0); MEAN CORPUSCULAR HEMOGLOBIN 26.2 pg (27.0-33.0); MEAN CORPUSCULAR HGB CONC 34.3 g/dL (32.0-36.0); MEAN CORPUSCULAR VOLUME 76.4 fL (79-99); MONOCYTES % (AUTO) 1.6 % (3.0-13.0); NEUTROPHILS % (AUTO) 85.9 % (40.0-77.0); RED BLOOD CELL COUNT(AUTO) 2.71 MIL/uL (4.00-5.50); RED CELL DISTRIBUTION WIDTH 17.4 % (11.0-15.5); WHITE BLOOD COUNT (AUTO) 7.5 K/uL (4.8-10.8)
[2020-01-22 01:49] LABS: CREATININE 6.6 mg/dL (0.5-1.5); POTASSIUM 4.5 mmol/L (3.5-5.1)
[2020-01-22 01:50] LABS: HEMATOCRIT 20.7 % (36-48)
[2020-01-22 01:51] LABS: PLATELET COUNT (AUTO) 83 K/uL (130-400)
[2020-01-22] MEDS: PROPOFOL 1000 MG/100 ML 100 ML IV PRN (02:18)
[2020-01-22 04:10] LABS: HEPATITIS A ANTIBODY IGM Negative (Negative); HEPATITIS B CORE IGM Negative (Negative); HEPATITIS Bs ANTIGEN SCREEN P Negative (Negative)
[2020-01-22 04:24] LABS: ABG BASE EXCESS -3.3 mmol/L (-2.0-3.0); ABG HCO3 22.1 mmol/L (21.0-28.0); ABG OXYGEN SATURATION 97.5 % (95.0-99.0); ABG PCO2 41 mmHg (32-45)
[2020-01-22 04:29] LABS: ALBUMIN 2.1 g/dL (3.5-5.0); BILIRUBIN,DIRECT 0.2 mg/dL (0.0-0.3); BILIRUBIN,TOTAL 0.5 mg/dL (0.2-1.0); TOTAL PROTEIN, SERUM 5.7 g/dL (6.0-8.3)
[2020-01-22] MEDS: INSULIN HUMULIN R 100 UNIT/ML 3ML SQ SCH ×5 (05:50→23:55)
[2020-01-22] MEDS: PANTOPRAZOLE 40 MG/VIAL IVP SCH (08:55)
[2020-01-22] MEDS ORDERED: PANTOPRAZOLE SODIUM 40 MG TABLET.DR PO SCH (10:46)
[2020-01-22 12:15] LABS: HEMATOCRIT 21.8 % (36-48)
[2020-01-22] MEDS: CEFTRIAXONE SODIUM 1 GM IVP SCH (12:27)
[2020-01-22] MEDS ORDERED: METHYLPREDNISOLONE SOD SUCC 40MG/ML 1ML ONE (13:43)
[2020-01-22] MEDS ORDERED: RACEPINEPHRINE HCL 2.25% 0.5 ML NEB SOLN ONE (13:43)
[2020-01-22] MEDS ORDERED: RACEPINEPHRINE HCL 2.25% 0.5 ML NEB SOLN NEB SCH (13:45)
[2020-01-22] MEDS ORDERED: RACEPINEPHRINE HCL 2.25% 0.5 ML NEB SOLN NEB PRN (14:00)
[2020-01-22] MEDS ORDERED: FENTANYL CITRATE PF 50 MCG/1 ML 2ML VIAL ONE (14:38)
[2020-01-22] MEDS ORDERED: ROCURONIUM BROMIDE 10MG/1ML 5ML VL IV ONE (15:00)
[2020-01-22] MEDS ORDERED: ETOMIDATE 2 MG/ML 10 ML VIAL IVP ONE (15:00)
[2020-01-22] MEDS ORDERED: PROPOFOL 1000 MG/100 ML 100 ML IV ONE (15:30)
[2020-01-22] MEDS ORDERED: PROPOFOL 1000 MG/100 ML IV PRN (15:45)
[2020-01-22] MEDS ORDERED: FENTANYL CITRATE PF 0.05 MG/ML 2,500 MCG in SODIUM CHLORIDE 0.9% 250 ML IVPB SCH (15:45)
[2020-01-22] MEDS ORDERED: METHYLPREDNISOLONE SOD SUCC 125MG/2ML VIAL IVP SCH (16:00)
[2020-01-22 16:24] LABS: ABG BASE EXCESS -2.4 mmol/L (-2.0-3.0); ABG HCO3 23.1 mmol/L (21.0-28.0); ABG OXYGEN SATURATION 99.8 % (95.0-99.0); ABG PCO2 43 mmHg (32-45)
[2020-01-22] MEDS ORDERED: HEPARIN SODIUM 5000UNIT/ML 1ML VIAL ONE (18:29)
[2020-01-22 18:42] LABS: HEMATOCRIT 23.4 % (36-48)
[2020-01-22] MEDS: FAMOTIDINE/PF 20 MG/2 ML VIAL IV SCH (21:31)
[2020-01-22] MEDS: METHYLPREDNISOLONE SOD SUCC 40MG/ML 1ML IVP SCH (21:31)
[2020-01-22] MEDS: PROPOFOL 1000 MG/100 ML 100 ML IV SCH (21:34)
[2020-01-23] VITALS (35 sets, daily range): BP systolic 99–137; BP diastolic 50–79
[2020-01-23 00:59] LABS: HEMATOCRIT 19.1 % (36-48)
[2020-01-23] MEDS: FENTANYL 2500MCG+NS 250ML 250 ML IV SCH (01:29)
[2020-01-23] MEDS: PROPOFOL 1000 MG/100 ML 100 ML IV SCH ×3 (01:39→18:56)
[2020-01-23] MEDS: INSULIN HUMULIN R 100 UNIT/ML 3ML SQ SCH ×4 (06:00→23:15)
[2020-01-23 06:43] LABS: BASOPHILS % (AUTO) 0.4 % (0.0-5.0); LYMPHOCYTES % (AUTO) 4.1 % (21.0-51.0); MEAN CORPUSCULAR HGB CONC 34.4 g/dL (32.0-36.0); MEAN CORPUSCULAR VOLUME 75.6 fL (79-99); MONOCYTES % (AUTO) 0.9 % (3.0-13.0); NEUTROPHILS % (AUTO) 90.3 % (40.0-77.0); PLATELET COUNT (AUTO) 70 K/uL (130-400); RED BLOOD CELL COUNT(AUTO) 2.54 MIL/uL (4.00-5.50); RED CELL DISTRIBUTION WIDTH 16.9 % (11.0-15.5); WHITE BLOOD COUNT (AUTO) 4.6 K/uL (4.8-10.8)
[2020-01-23 07:03] LABS: CREATININE 5.7 mg/dL (0.5-1.5); PHOSPHORUS 12.1 mg/dL (2.5-4.9); POTASSIUM 5.2 mmol/L (3.5-5.1)
[2020-01-23 07:07] LABS: HEMATOCRIT 19.2 % (36-48)
[2020-01-23] MEDS: PHARMACY COMMUNICATION MISC SCH ×4 (08:00→17:00)
[2020-01-23 08:06] LABS: ABG BASE EXCESS -0.2 mmol/L (-2.0-3.0); ABG HCO3 19.7 mmol/L (21.0-28.0); ABG OXYGEN SATURATION 97.8 % (95.0-99.0); ABG PCO2 22 mmHg (32-45)
[2020-01-23] MEDS: METHYLPREDNISOLONE SOD SUCC 40MG/ML 1ML IVP SCH ×2 (08:35→20:23)
[2020-01-23] MEDS ORDERED: HEPARIN SODIUM 5000UNIT/ML 1ML VIAL ONE (11:03)
[2020-01-23] MEDS: CEFTRIAXONE SODIUM 1 GM IVP SCH (11:09)
[2020-01-23 13:11] LABS: HEMATOCRIT 27.6 % (36-48)
[2020-01-23] MEDS: FAMOTIDINE/PF 20 MG/2 ML VIAL IV SCH (20:23)
[2020-01-24] VITALS (22 sets, daily range): BP systolic 96–132; BP diastolic 52–81
[2020-01-24] MEDS: PROPOFOL 1000 MG/100 ML 100 ML IV SCH ×3 (00:32→12:13)
[2020-01-24] MEDS: PHARMACY COMMUNICATION MISC SCH ×6 (01:00→17:00)
[2020-01-24 03:38] LABS: BASOPHILS % (AUTO) 0.4 % (0.0-5.0); LYMPHOCYTES % (AUTO) 7.6 % (21.0-51.0); MEAN CORPUSCULAR HEMOGLOBIN 27.1 pg (27.0-33.0); MEAN CORPUSCULAR HGB CONC 34.2 g/dL (32.0-36.0); MEAN CORPUSCULAR VOLUME 79.2 fL (79-99); MONOCYTES % (AUTO) 3.4 % (3.0-13.0); NEUTROPHILS % (AUTO) 87.8 % (40.0-77.0); PLATELET COUNT (AUTO) 53 K/uL (130-400); RED BLOOD CELL COUNT(AUTO) 3.03 MIL/uL (4.00-5.50); WHITE BLOOD COUNT (AUTO) 2.4 K/uL (4.8-10.8)
[2020-01-24 04:13] LABS: ALBUMIN 1.9 g/dL (3.5-5.0); BILIRUBIN,TOTAL 0.5 mg/dL (0.2-1.0); CREATININE 5.8 mg/dL (0.5-1.5); MAGNESIUM 3.1 mg/dL (1.80-2.40); PHOSPHORUS 11.7 mg/dL (2.5-4.9); TOTAL PROTEIN, SERUM 5.5 g/dL (6.0-8.3)
[2020-01-24] MEDS: FENTANYL 2500MCG+NS 250ML 250 ML IV SCH (04:36)
[2020-01-24 04:55] LABS: ABG BASE EXCESS -1.5 mmol/L (-2.0-3.0); ABG HCO3 22.2 mmol/L (21.0-28.0); ABG OXYGEN SATURATION 95.5 % (95.0-99.0); ABG PCO2 35 mmHg (32-45)
[2020-01-24 04:59] LABS: LYMPHOCYTES % (MANUAL) 8 % (22-44); MONOCYTES % (MANUAL) 2 % (2-9); SEGMENTED NEUTROPHILS % 90 % (40-70)
[2020-01-24 05:00] LABS: MAN.DIFF COMMENT-IMPRESSION MANUAL DIFFERENTIAL; PLATELET MORPHOLOGY COMMENT DECREASED
[2020-01-24] MEDS: INSULIN HUMULIN R 100 UNIT/ML 3ML SQ SCH ×3 (06:00→18:00)
[2020-01-24] MEDS: METHYLPREDNISOLONE SOD SUCC 40MG/ML 1ML IVP SCH ×2 (08:02→21:43)
[2020-01-24] MEDS: CEFTRIAXONE SODIUM 1 GM IVP SCH (12:05)
[2020-01-24] MEDS ORDERED: HEPARIN SODIUM 5000UNIT/ML 1ML VIAL ONE (13:51)
[2020-01-24] MEDS ORDERED: ATROPINE SULFATE 0.1 MG/ML 10 ML SYG IVP ONE (15:12)
[2020-01-24] MEDS ORDERED: DOPAMINE 800MG/D5 250ML 250 ML IV ONE (15:14)
[2020-01-24] MEDS: DEXMEDETOMIDINE HCL 400 MCG in SODIUM CHLORIDE 0.9% 100 ML IV SCH (18:49)
[2020-01-24] MEDS ORDERED: DEXTROSE 10%-WATER 1,000 ML IV SCH (19:00)
[2020-01-24] MEDS: ONDANSETRON HCL 4 MG/2 ML VIAL IV PRN (20:01)
[2020-01-24] MEDS ORDERED: PHARMACY COMMUNICATION MISC SCH (20:45)
[2020-01-24] MEDS: FAMOTIDINE/PF 20 MG/2 ML VIAL IV SCH (21:43)
[2020-01-25] VITALS (39 sets, daily range): BP systolic 117–169; BP diastolic 58–89
[2020-01-25] MEDS: PHARMACY COMMUNICATION MISC SCH ×6 (01:00→17:00)
[2020-01-25 04:56] LABS: ABG HCO3 23.5 mmol/L (21.0-28.0); ABG OXYGEN SATURATION 96.6 % (95.0-99.0); ABG PCO2 29 mmHg (32-45)
[2020-01-25 05:16] LABS: BASOPHILS % (AUTO) 0.9 % (0.0-5.0); HEMATOCRIT 27.4 % (36-48); LYMPHOCYTES % (AUTO) 20.5 % (21.0-51.0); MEAN CORPUSCULAR HEMOGLOBIN 26.6 pg (27.0-33.0); MEAN CORPUSCULAR HGB CONC 33.6 g/dL (32.0-36.0); MEAN CORPUSCULAR VOLUME 79.2 fL (79-99); MONOCYTES % (AUTO) 10.7 % (3.0-13.0); PLATELET COUNT (AUTO) 47 K/uL (130-400); RED BLOOD CELL COUNT(AUTO) 3.46 MIL/uL (4.00-5.50); RED CELL DISTRIBUTION WIDTH 16.6 % (11.0-15.5)
[2020-01-25 05:20] LABS: CREATININE 5.3 mg/dL (0.5-1.5); MAGNESIUM 2.4 mg/dL (1.80-2.40); POTASSIUM 4.7 mmol/L (3.5-5.1); WHITE BLOOD COUNT (AUTO) 1.1 K/uL (4.8-10.8)
[2020-01-25] MEDS: DEXMEDETOMIDINE HCL 400 MCG in SODIUM CHLORIDE 0.9% 100 ML IV SCH ×2 (05:29→17:51)
[2020-01-25] MEDS: INSULIN HUMULIN R 100 UNIT/ML 3ML SQ SCH ×5 (05:51→23:39)
[2020-01-25] MEDS: METHYLPREDNISOLONE SOD SUCC 40MG/ML 1ML IVP SCH ×2 (07:58→21:05)
[2020-01-25 08:34] LABS: ABG HCO3 20.6 mmol/L (21.0-28.0); ABG OXYGEN SATURATION 99.4 % (95.0-99.0); ABG PCO2 24 mmHg (32-45)
[2020-01-25] MEDS: RACEPINEPHRINE HCL 2.25% 0.5 ML NEB SOLN NEB SCH ×3 (09:11→16:04)
[2020-01-25] MEDS ORDERED: FUROSEMIDE 10 MG/ML 10ML VIAL IVP SCH (09:26)
[2020-01-25] MEDS: CEFTRIAXONE SODIUM 1 GM IVP SCH (11:06)
[2020-01-25] MEDS: TBO-FILGRASTIM 480 MCG/0.8 ML ML SQ SCH (21:05)
[2020-01-25] MEDS: FAMOTIDINE/PF 20 MG/2 ML VIAL IV SCH (21:05)
[2020-01-25] MEDS ORDERED: LABETALOL 20 MG/4 ML DISP.SYRIN IV SCH (23:15)
[2020-01-25] MEDS ORDERED: METOPROLOL TARTRATE 1 MG/ML 5ML VIAL IV ONE (23:22)
[2020-01-26] VITALS (24 sets, daily range): BP systolic 118–167; BP diastolic 63–99
[2020-01-26] MEDS: PHARMACY COMMUNICATION MISC SCH ×8 (01:00→19:29)
[2020-01-26] MEDS: DEXMEDETOMIDINE HCL 400 MCG in SODIUM CHLORIDE 0.9% 100 ML IV SCH (01:26)
[2020-01-26 04:35] LABS: HEMATOCRIT 29.1 % (36-48); LYMPHOCYTES % (AUTO) 21.6 % (21.0-51.0); MEAN CORPUSCULAR HEMOGLOBIN 26.4 pg (27.0-33.0); MEAN CORPUSCULAR HGB CONC 32.3 g/dL (32.0-36.0); MEAN CORPUSCULAR VOLUME 81.7 fL (79-99); NEUTROPHILS % (AUTO) 53.4 % (40.0-77.0); PLATELET COUNT (AUTO) 57 K/uL (130-400); RED BLOOD CELL COUNT(AUTO) 3.56 MIL/uL (4.00-5.50)
[2020-01-26 04:39] LABS: WHITE BLOOD COUNT (AUTO) 0.9 K/uL (4.8-10.8)
[2020-01-26 04:45] LABS: CREATININE 6.9 mg/dL (0.5-1.5); MAGNESIUM 2.7 mg/dL (1.80-2.40); POTASSIUM 5.9 mmol/L (3.5-5.1)
[2020-01-26] MEDS: INSULIN HUMULIN R 100 UNIT/ML 3ML SQ SCH ×3 (05:23→17:14)
[2020-01-26] MEDS ORDERED: HEPARIN SODIUM 5000UNIT/ML 1ML VIAL SQ SCH (11:00)
[2020-01-26] MEDS: CEFTRIAXONE SODIUM 1 GM IVP SCH (11:18)
[2020-01-26] MEDS: DEXTROSE 50%-WATER 50 ML DISP.SYRIN IV PRN ×2 (11:27→17:04)
[2020-01-26] MEDS ORDERED: GLUCAGON 1MG KIT 1 MG ML IM PRN (15:15)
[2020-01-26] MEDS ORDERED: DEXTROSE 50%-WATER 50 ML DISP.SYRIN IV PRN (15:15)
[2020-01-26] MEDS ORDERED: ACETAMINOPHEN 325 MG TAB ONE (17:59)
[2020-01-26] MEDS: TBO-FILGRASTIM 480 MCG/0.8 ML ML SQ SCH (20:47)
[2020-01-26] MEDS: FAMOTIDINE/PF 20 MG/2 ML VIAL IV SCH (20:47)
[2020-01-27] VITALS (12 sets, daily range): BP systolic 131–156; BP diastolic 70–85
[2020-01-27 03:35] LABS: EOSINOPHILS % (AUTO) 1.2 % (0.0-8.0); HEMATOCRIT 28.9 % (36-48); LYMPHOCYTES % (AUTO) 30.1 % (21.0-51.0); MEAN CORPUSCULAR HGB CONC 33.2 g/dL (32.0-36.0); MEAN CORPUSCULAR VOLUME 81.2 fL (79-99); MONOCYTES % (AUTO) 37.3 % (3.0-13.0); NEUTROPHILS % (AUTO) 21.8 % (40.0-77.0); PLATELET COUNT (AUTO) 99 K/uL (130-400); RED BLOOD CELL COUNT(AUTO) 3.56 MIL/uL (4.00-5.50)
[2020-01-27 03:43] LABS: WHITE BLOOD COUNT (AUTO) 0.8 K/uL (4.8-10.8)
[2020-01-27] MEDS: ACETAMINOPHEN 325 MG TAB PO PRN ×2 (03:59→20:37)
[2020-01-27 04:09] LABS: ALBUMIN 2.3 g/dL (3.5-5.0); BILIRUBIN,TOTAL 0.6 mg/dL (0.2-1.0); CREATININE 6.5 mg/dL (0.5-1.5); MAGNESIUM 2.5 mg/dL (1.80-2.40); PHOSPHORUS 9.3 mg/dL (2.5-4.9); POTASSIUM 4.6 mmol/L (3.5-5.1); TOTAL PROTEIN, SERUM 6.5 g/dL (6.0-8.3); URIC ACID 8.8 mg/dL (2.6-7.2)
[2020-01-27] MEDS: INSULIN HUMULIN R 100 UNIT/ML 3ML SQ SCH ×5 (06:00→21:00)
[2020-01-27] MEDS: PHARMACY COMMUNICATION MISC SCH ×4 (08:00→16:32)
[2020-01-27] MEDS: METOPROLOL TARTRATE 25 MG TAB PO SCH ×2 (09:00→20:35)
[2020-01-27] MEDS: CEFTRIAXONE SODIUM 1 GM IVP SCH (11:09)
[2020-01-27] MEDS ORDERED: HYDROMORPHONE HCL 0.5 MG/0.5 ML ML IVP SCH (12:30)
[2020-01-27] MEDS ORDERED: DEXTROSE 50%-WATER 50 ML DISP.SYRIN IV PRN (19:45)
[2020-01-27] MEDS ORDERED: GLUCAGON 1MG KIT 1 MG ML IM PRN (19:45)
[2020-01-27] MEDS: FAMOTIDINE/PF 20 MG/2 ML VIAL IV SCH (20:31)
[2020-01-27] MEDS: TBO-FILGRASTIM 480 MCG/0.8 ML ML SQ SCH (20:31)
[2020-01-28] MEDS: PHARMACY COMMUNICATION MISC SCH ×5 (01:00→16:00)
[2020-01-28 04:20] VITALS: BP 142/89
[2020-01-28] MEDS: ACETAMINOPHEN 325 MG TAB PO PRN (05:14)
[2020-01-28] MEDS: INSULIN HUMULIN R 100 UNIT/ML 3ML SQ SCH ×4 (05:26→21:00)
[2020-01-28 06:29] LABS: CREATININE 7.8 mg/dL (0.5-1.5); MAGNESIUM 2.2 mg/dL (1.80-2.40); POTASSIUM 3.8 mmol/L (3.5-5.1)
[2020-01-28 07:00] LABS: BASOPHILS % (AUTO) 1.4 % (0.0-5.0); EOSINOPHILS % (AUTO) 1.7 % (0.0-8.0); LYMPHOCYTES % (AUTO) 12.9 % (21.0-51.0); MEAN CORPUSCULAR HEMOGLOBIN 26.3 pg (27.0-33.0); MEAN CORPUSCULAR VOLUME 82.2 fL (79-99); MONOCYTES % (AUTO) 20.6 % (3.0-13.0); PLATELET COUNT (AUTO) 191 K/uL (130-400); RED BLOOD CELL COUNT(AUTO) 3.65 MIL/uL (4.00-5.50); RED CELL DISTRIBUTION WIDTH 16.1 % (11.0-15.5); WHITE BLOOD COUNT (AUTO) 2.9 K/uL (4.8-10.8)
[2020-01-28 07:53] LABS: EOSINOPHILS % (MANUAL) 1 % (1-6); LYMPHOCYTES % (MANUAL) 22 % (22-44); MONOCYTES % (MANUAL) 22 % (2-9); SEGMENTED NEUTROPHILS % 55 % (40-70)
[2020-01-28 07:54] LABS: MAN.DIFF COMMENT-IMPRESSION MANUAL DIFFERENTIAL; PLATELET MORPHOLOGY COMMENT ADEQUATE
[2020-01-28 08:29] VITALS: BP 140/92
[2020-01-28] MEDS: METOPROLOL TARTRATE 25 MG TAB PO SCH ×2 (10:12→20:13)
[2020-01-28 11:00] VITALS: BP 125/71
[2020-01-28] MEDS ORDERED: PHARMACY COMMUNICATION MISC SCH (11:00)
[2020-01-28] MEDS ORDERED: MAG/AL/SIMETH 30 ML+LIDO2% VISC+DIPHEN 75MG 30ML PO PRN ×3 (11:00)
[2020-01-28] MEDS ORDERED: COMPOUND PO MISCELLANEOUS 1 EACH MISC MISC PRN (11:00)
[2020-01-28] MEDS: CEFTRIAXONE SODIUM 1 GM IVP SCH (11:59)
[2020-01-28] MEDS: EPOETIN ALFA-EPBX (ESRD) 10,000 UNIT/ML VIAL SQ SCH (15:30)
[2020-01-28 16:00] VITALS: BP 140/81
[2020-01-28] MEDS: MAG HYDROX/AL HYDROX/SIMETH 60 ML, LIDOCAINE HCL 2% VISCOUS 60 ML, DIPHENHYDRAMINE HCL ... PO SCH ×6 (16:20→20:18)
[2020-01-28 19:52] VITALS: BP 150/91
[2020-01-28] MEDS: TBO-FILGRASTIM 480 MCG/0.8 ML ML SQ SCH (20:12)
[2020-01-28] MEDS: FAMOTIDINE/PF 20 MG/2 ML VIAL IV SCH (20:13)
[2020-01-29] VITALS: BP 135/77
[2020-01-29] MEDS: MAG HYDROX/AL HYDROX/SIMETH 60 ML, LIDOCAINE HCL 2% VISCOUS 60 ML, DIPHENHYDRAMINE HCL ... PO SCH ×12 (03:31→21:00)
[2020-01-29 04:00] VITALS: BP 148/84
[2020-01-29 05:14] LABS: BASOPHILS % (AUTO) 0.2 % (0.0-5.0); EOSINOPHILS % (AUTO) 0.3 % (0.0-8.0); HEMATOCRIT 31.5 % (36-48); LYMPHOCYTES % (AUTO) 6.4 % (21.0-51.0); MEAN CORPUSCULAR HEMOGLOBIN 26.4 pg (27.0-33.0); MEAN CORPUSCULAR HGB CONC 32.1 g/dL (32.0-36.0); MEAN CORPUSCULAR VOLUME 82.2 fL (79-99); MONOCYTES % (AUTO) 12.8 % (3.0-13.0); NEUTROPHILS % (AUTO) 71.7 % (40.0-77.0); PLATELET COUNT (AUTO) 291 K/uL (130-400); RED BLOOD CELL COUNT(AUTO) 3.83 MIL/uL (4.00-5.50); RED CELL DISTRIBUTION WIDTH 16.4 % (11.0-15.5); WHITE BLOOD COUNT (AUTO) 11.1 K/uL (4.8-10.8)
[2020-01-29 05:58] LABS: POTASSIUM 3.7 mmol/L (3.5-5.1)
[2020-01-29] MEDS: PHARMACY COMMUNICATION MISC SCH ×6 (06:00→18:00)
[2020-01-29 06:05] LABS: CREATININE 8.5 mg/dL (0.5-1.5)
[2020-01-29] MEDS: INSULIN HUMULIN R 100 UNIT/ML 3ML SQ SCH ×4 (06:15→21:00)
[2020-01-29] MEDS: METOPROLOL TARTRATE 25 MG TAB PO SCH ×2 (09:10→21:10)
[2020-01-29 09:52] VITALS: BP 115/89
[2020-01-29 11:50] VITALS: BP 154/78
[2020-01-29] MEDS: CEFTRIAXONE SODIUM 1 GM IVP SCH (15:04)
[2020-01-29 18:05] VITALS: BP 139/80
[2020-01-29 19:30] VITALS: BP 133/76
[2020-01-29] MEDS: FAMOTIDINE/PF 20 MG/2 ML VIAL IV SCH (21:10)
[2020-01-29] MEDS ORDERED: IPRATROPIUM 0.5 MG/2.5 ML INH IH PRN (23:15)
[2020-01-30] VITALS (7 sets, daily range): BP systolic 124–144; BP diastolic 60–74
[2020-01-30] MEDS: MAG HYDROX/AL HYDROX/SIMETH 60 ML, LIDOCAINE HCL 2% VISCOUS 60 ML, DIPHENHYDRAMINE HCL ... PO SCH ×12 (02:28→20:23)
[2020-01-30 05:25] LABS: BASOPHILS % (AUTO) 0.2 % (0.0-5.0); EOSINOPHILS % (AUTO) 0.1 % (0.0-8.0); HEMATOCRIT 31.1 % (36-48); LYMPHOCYTES % (AUTO) 3.5 % (21.0-51.0); MEAN CORPUSCULAR HEMOGLOBIN 26.3 pg (27.0-33.0); MEAN CORPUSCULAR HGB CONC 31.8 g/dL (32.0-36.0); MEAN CORPUSCULAR VOLUME 82.7 fL (79-99); MONOCYTES % (AUTO) 11.3 % (3.0-13.0); NEUTROPHILS % (AUTO) 77.6 % (40.0-77.0); PLATELET COUNT (AUTO) 357 K/uL (130-400); RED BLOOD CELL COUNT(AUTO) 3.76 MIL/uL (4.00-5.50); RED CELL DISTRIBUTION WIDTH 16.7 % (11.0-15.5)
[2020-01-30] MEDS: INSULIN HUMULIN R 100 UNIT/ML 3ML SQ SCH ×4 (05:46→20:10)
[2020-01-30 05:47] LABS: POTASSIUM 3.8 mmol/L (3.5-5.1)
[2020-01-30 05:49] LABS: CREATININE 8.9 mg/dL (0.5-1.5)
[2020-01-30] MEDS: PHARMACY COMMUNICATION MISC SCH ×4 (06:00→18:00)
[2020-01-30] MEDS: BALSAM PERU/CASTOR OIL 60 GM TUBE TP SCH ×3 (09:00→21:14)
[2020-01-30] MEDS: METOPROLOL TARTRATE 25 MG TAB PO SCH ×2 (09:00→20:10)
[2020-01-30] MEDS ORDERED: HEPARIN SODIUM 5000UNIT/ML 1ML VIAL ONE (14:53)
[2020-01-30] MEDS: CEFTRIAXONE SODIUM 1 GM IVP SCH (15:20)
[2020-01-30] MEDS: EPOETIN ALFA-EPBX (ESRD) 10,000 UNIT/ML VIAL SQ SCH (15:30)
[2020-01-30] MEDS: FAMOTIDINE/PF 20 MG/2 ML VIAL IV SCH (20:23)
[2020-01-31] MEDS: ONDANSETRON HCL 4 MG/2 ML VIAL IV PRN ×3 (01:05→17:53)
[2020-01-31] MEDS: MAG HYDROX/AL HYDROX/SIMETH 60 ML, LIDOCAINE HCL 2% VISCOUS 60 ML, DIPHENHYDRAMINE HCL ... PO SCH ×9 (03:00→20:48)
[2020-01-31 03:48] VITALS: BP 116/75
[2020-01-31 05:26] LABS: BASOPHILS % (AUTO) 0.2 % (0.0-5.0); EOSINOPHILS % (AUTO) 0.1 % (0.0-8.0); HEMATOCRIT 33.1 % (36-48); LYMPHOCYTES % (AUTO) 4.6 % (21.0-51.0); MEAN CORPUSCULAR HEMOGLOBIN 26.2 pg (27.0-33.0); MEAN CORPUSCULAR VOLUME 81.9 fL (79-99); MONOCYTES % (AUTO) 11.2 % (3.0-13.0); NEUTROPHILS % (AUTO) 71.4 % (40.0-77.0); PLATELET COUNT (AUTO) 388 K/uL (130-400); RED BLOOD CELL COUNT(AUTO) 4.04 MIL/uL (4.00-5.50); RED CELL DISTRIBUTION WIDTH 16.6 % (11.0-15.5); WHITE BLOOD COUNT (AUTO) 20.4 K/uL (4.8-10.8)
[2020-01-31 05:51] LABS: CREATININE 6.5 mg/dL (0.5-1.5); POTASSIUM 3.7 mmol/L (3.5-5.1)
[2020-01-31] MEDS: PHARMACY COMMUNICATION MISC SCH ×4 (06:00→18:00)
[2020-01-31] MEDS: INSULIN HUMULIN R 100 UNIT/ML 3ML SQ SCH ×4 (06:39→20:47)
[2020-01-31 08:00] VITALS: BP 137/75
[2020-01-31] MEDS: METOPROLOL TARTRATE 25 MG TAB PO SCH ×2 (09:26→20:47)
[2020-01-31] MEDS: BALSAM PERU/CASTOR OIL 60 GM TUBE TP SCH ×3 (09:30→20:47)
[2020-01-31 11:00] VITALS: BP 133/83
[2020-01-31] MEDS: ZOSYN 3.375GM+NS 50ML 50 ML IV SCH ×2 (15:30→20:46)
[2020-01-31 16:00] VITALS: BP 127/71
[2020-01-31 20:33] VITALS: BP 134/71
[2020-01-31] MEDS: FAMOTIDINE/PF 20 MG/2 ML VIAL IV SCH (20:46)
[2020-02-01 00:23] VITALS: BP 103/66
[2020-02-01] MEDS: MAG HYDROX/AL HYDROX/SIMETH 60 ML, LIDOCAINE HCL 2% VISCOUS 60 ML, DIPHENHYDRAMINE HCL ... PO SCH ×12 (03:00→21:22)
[2020-02-01 04:31] VITALS: BP 132/82
[2020-02-01 05:31] LABS: BASOPHILS % (AUTO) 0.3 % (0.0-5.0); LYMPHOCYTES % (AUTO) 4.8 % (21.0-51.0); MEAN CORPUSCULAR HEMOGLOBIN 26.2 pg (27.0-33.0); MEAN CORPUSCULAR HGB CONC 31.7 g/dL (32.0-36.0); MEAN CORPUSCULAR VOLUME 82.7 fL (79-99); MONOCYTES % (AUTO) 9.2 % (3.0-13.0); NEUTROPHILS % (AUTO) 71.2 % (40.0-77.0); PLATELET COUNT (AUTO) 359 K/uL (130-400); RED BLOOD CELL COUNT(AUTO) 4.23 MIL/uL (4.00-5.50); RED CELL DISTRIBUTION WIDTH 16.7 % (11.0-15.5); WHITE BLOOD COUNT (AUTO) 17.6 K/uL (4.8-10.8)
[2020-02-01 06:00] LABS: CREATININE 6.9 mg/dL (0.5-1.5); PHOSPHORUS 6.3 mg/dL (2.5-4.9); POTASSIUM 3.7 mmol/L (3.5-5.1)
[2020-02-01] MEDS: PHARMACY COMMUNICATION MISC SCH ×4 (06:00→16:22)
[2020-02-01] MEDS: INSULIN HUMULIN R 100 UNIT/ML 3ML SQ SCH ×4 (07:30→21:00)
[2020-02-01 08:00] VITALS: BP 121/79
[2020-02-01] MEDS: ZOSYN 3.375GM+NS 50ML 50 ML IV SCH ×2 (10:03→21:23)
[2020-02-01] MEDS: EPOETIN ALFA-EPBX (ESRD) 10,000 UNIT/ML VIAL SQ SCH (10:04)
[2020-02-01] MEDS: METOPROLOL TARTRATE 25 MG TAB PO SCH ×2 (10:05→21:23)
[2020-02-01] MEDS: BALSAM PERU/CASTOR OIL 60 GM TUBE TP SCH ×3 (10:10→21:22)
[2020-02-01 12:00] VITALS: BP 109/67
[2020-02-01] MEDS: ONDANSETRON HCL 4 MG/2 ML VIAL IV PRN (15:07)
[2020-02-01 16:00] VITALS: BP 125/69
[2020-02-01 19:00] VITALS: BP 120/69
[2020-02-01] MEDS: FAMOTIDINE/PF 20 MG/2 ML VIAL IV SCH (21:22)
[2020-02-02] VITALS: BP 110/71
[2020-02-02] MEDS: MAG HYDROX/AL HYDROX/SIMETH 60 ML, LIDOCAINE HCL 2% VISCOUS 60 ML, DIPHENHYDRAMINE HCL ... PO SCH ×9 (03:00→15:00)
[2020-02-02 04:00] VITALS: BP 122/70
[2020-02-02 05:26] LABS: BASOPHILS % (AUTO) 0.5 % (0.0-5.0); EOSINOPHILS % (AUTO) 0.1 % (0.0-8.0); HEMATOCRIT 34.7 % (36-48); LYMPHOCYTES % (AUTO) 4.4 % (21.0-51.0); MEAN CORPUSCULAR HGB CONC 32.6 g/dL (32.0-36.0); MONOCYTES % (AUTO) 8.3 % (3.0-13.0); NUCLEATED RED BLOOD CELLS 0.1 % (0.0-0.19); PLATELET COUNT (AUTO) 351 K/uL (130-400); RED BLOOD CELL COUNT(AUTO) 4.18 MIL/uL (4.00-5.50); RED CELL DISTRIBUTION WIDTH 16.9 % (11.0-15.5); WHITE BLOOD COUNT (AUTO) 19.5 K/uL (4.8-10.8)
[2020-02-02 06:00] LABS: POTASSIUM 3.1 mmol/L (3.5-5.1)
[2020-02-02] MEDS: PHARMACY COMMUNICATION MISC SCH ×3 (06:00→12:37)
[2020-02-02] MEDS: INSULIN HUMULIN R 100 UNIT/ML 3ML SQ SCH ×3 (07:30→16:30)
[2020-02-02 07:52] VITALS: BP 128/78
[2020-02-02] MEDS: METOPROLOL TARTRATE 25 MG TAB PO SCH ×3 (09:00→20:37)
[2020-02-02] MEDS: ZOSYN 3.375GM+NS 50ML 50 ML IV SCH ×2 (11:14→20:38)
[2020-02-02] MEDS: BALSAM PERU/CASTOR OIL 60 GM TUBE TP SCH ×2 (11:17→14:00)
[2020-02-02 11:48] VITALS: BP 131/57
[2020-02-02] MEDS ORDERED: POTASSIUM CHLORIDE 20 MEQ ERTAB PO SCH (14:00)
[2020-02-02 16:00] VITALS: BP 124/76
[2020-02-02 19:00] VITALS: BP 122/76
[2020-02-02] MEDS ORDERED: POTASSIUM CHLORIDE 20 MEQ ERTAB PO ONE (19:11)
[2020-02-02] MEDS: ONDANSETRON HCL 4 MG/2 ML VIAL IV PRN (20:38)
[2020-02-02] MEDS: FAMOTIDINE/PF 20 MG/2 ML VIAL IV SCH (20:38)
[2020-02-03] VITALS (7 sets, daily range): BP systolic 114–131; BP diastolic 62–78
[2020-02-03 05:26] LABS: BASOPHILS % (AUTO) 0.5 % (0.0-5.0); HEMATOCRIT 31.8 % (36-48); MEAN CORPUSCULAR HEMOGLOBIN 26.4 pg (27.0-33.0); MEAN CORPUSCULAR HGB CONC 32.1 g/dL (32.0-36.0); MEAN CORPUSCULAR VOLUME 82.2 fL (79-99); MONOCYTES % (AUTO) 7.4 % (3.0-13.0); NEUTROPHILS % (AUTO) 71.5 % (40.0-77.0); PLATELET COUNT (AUTO) 366 K/uL (130-400); RED BLOOD CELL COUNT(AUTO) 3.87 MIL/uL (4.00-5.50); RED CELL DISTRIBUTION WIDTH 16.7 % (11.0-15.5); WHITE BLOOD COUNT (AUTO) 14.6 K/uL (4.8-10.8)
[2020-02-03 05:42] LABS: CREATININE 6.4 mg/dL (0.5-1.5); PHOSPHORUS 5.5 mg/dL (2.5-4.9); POTASSIUM 3.2 mmol/L (3.5-5.1)
[2020-02-03] MEDS: INSULIN HUMULIN R 100 UNIT/ML 3ML SQ SCH ×4 (07:30→21:00)
[2020-02-03] MEDS: ZOSYN 3.375GM+NS 50ML 50 ML IV SCH ×2 (08:32→20:43)
[2020-02-03] MEDS: BALSAM PERU/CASTOR OIL 60 GM TUBE TP SCH ×3 (08:32→21:06)
[2020-02-03] MEDS: METOPROLOL TARTRATE 25 MG TAB PO SCH ×2 (08:32→20:43)
[2020-02-03] MEDS ORDERED: POTASSIUM CHLORIDE 20 MEQ ERTAB PO SCH (11:30)
[2020-02-03] MEDS: MAG HYDROX/AL HYDROX/SIMETH 60 ML, LIDOCAINE HCL 2% VISCOUS 60 ML, DIPHENHYDRAMINE HCL ... PO SCH ×6 (12:05→18:40)
[2020-02-03] MEDS: ONDANSETRON HCL 4 MG/2 ML VIAL IV PRN ×2 (13:17→18:40)
[2020-02-03] MEDS: FAMOTIDINE/PF 20 MG/2 ML VIAL IV SCH (20:43)
[2020-02-04] VITALS: BP 125/69
[2020-02-04 04:00] VITALS: BP 111/65
[2020-02-04 05:19] LABS: CREATININE 5.8 mg/dL (0.5-1.5); PHOSPHORUS 5.2 mg/dL (2.5-4.9); POTASSIUM 3.3 mmol/L (3.5-5.1)
[2020-02-04 05:21] LABS: HEMATOCRIT 30.5 % (36-48); MEAN CORPUSCULAR HEMOGLOBIN 26.5 pg (27.0-33.0); MEAN CORPUSCULAR HGB CONC 32.1 g/dL (32.0-36.0); MEAN CORPUSCULAR VOLUME 82.4 fL (79-99); PLATELET COUNT (AUTO) 395 K/uL (130-400); RED CELL DISTRIBUTION WIDTH 16.9 % (11.0-15.5); WHITE BLOOD COUNT (AUTO) 13.5 K/uL (4.8-10.8)
[2020-02-04 07:05] LABS: BAND NEUTROPHILS % (MANUAL) 4 % (0-2); BASOPHILS % (MANUAL) 1 % (0-2); LYMPHOCYTES % (MANUAL) 9 % (22-44); MAN.DIFF COMMENT-IMPRESSION MANUAL DIFFERENTIAL; MONOCYTES % (MANUAL) 9 % (2-9); PLATELET MORPHOLOGY COMMENT ADEQUATE; SEGMENTED NEUTROPHILS % 77 % (40-70)
[2020-02-04 07:30] VITALS: BP 133/73
[2020-02-04] MEDS: INSULIN HUMULIN R 100 UNIT/ML 3ML SQ SCH ×4 (07:30→20:16)
[2020-02-04] MEDS: ZOSYN 3.375GM+NS 50ML 50 ML IV SCH ×2 (07:59→19:28)
[2020-02-04] MEDS: METOPROLOL TARTRATE 25 MG TAB PO SCH ×2 (08:00→19:29)
[2020-02-04] MEDS: EPOETIN ALFA-EPBX (ESRD) 10,000 UNIT/ML VIAL SQ SCH (09:00)
[2020-02-04] MEDS: BALSAM PERU/CASTOR OIL 60 GM TUBE TP SCH ×3 (10:33→19:29)
[2020-02-04 11:00] VITALS: BP 116/66
[2020-02-04] MEDS: MAG HYDROX/AL HYDROX/SIMETH 60 ML, LIDOCAINE HCL 2% VISCOUS 60 ML, DIPHENHYDRAMINE HCL ... PO SCH ×6 (11:34→17:12)
[2020-02-04] MEDS: ONDANSETRON HCL 4 MG/2 ML VIAL IV PRN ×2 (11:53→20:16)
[2020-02-04 14:47] LABS: APPEARANCE,URINE CLOUDY (CLEAR); BILIRUBIN,URINE NEGATIVE (NEGATIVE); COLOR,URINE YELLOW (YELLOW); GLUCOSE, URINE (UA) NEGATIVE (NEGATIVE); KETONES,URINE NEGATIVE (NEGATIVE); LEUKOCYTE ESTERASE ,URINE TRACE (NEGATIVE); NITRATE,URINE NEGATIVE (NEGATIVE); OCCULT BLOOD,URINE TRACE-INTACT (NEGATIVE); PROTEIN,URINE 30 mg/dL (NEGATIVE); UROBILINOGEN,URINE 0.2 mg/dL (0.2-1.0)
[2020-02-04 15:05] LABS: BACTERIA,URINE Rare /HPF (None Seen); SQUAMOUS EPITHELIAL CELL,UR Few /HPF (0-2); TRANSITIONAL EPI CELLS,URINE Rare /HPF (None Seen); YEAST,URINE BUDDING Moderate /HPF (None Seen)
[2020-02-04 16:00] VITALS: BP 103/60
[2020-02-04] MEDS: FAMOTIDINE/PF 20 MG/2 ML VIAL IV SCH (19:29)
[2020-02-04 19:57] VITALS: BP 126/68
[2020-02-04] MEDS: ACETAMINOPHEN 325 MG TAB PO PRN (23:50)
[2020-02-05] VITALS (7 sets, daily range): BP systolic 108–131; BP diastolic 68–76
[2020-02-05 05:07] LABS: BASOPHILS % (AUTO) 1.3 % (0.0-5.0); EOSINOPHILS % (AUTO) 0.1 % (0.0-8.0); HEMATOCRIT 30.5 % (36-48); LYMPHOCYTES % (AUTO) 7.7 % (21.0-51.0); MEAN CORPUSCULAR HEMOGLOBIN 26.3 pg (27.0-33.0); MEAN CORPUSCULAR HGB CONC 32.1 g/dL (32.0-36.0); MONOCYTES % (AUTO) 7.7 % (3.0-13.0); NEUTROPHILS % (AUTO) 72.2 % (40.0-77.0); PLATELET COUNT (AUTO) 397 K/uL (130-400); RED BLOOD CELL COUNT(AUTO) 3.72 MIL/uL (4.00-5.50); RED CELL DISTRIBUTION WIDTH 16.9 % (11.0-15.5)
[2020-02-05 05:44] LABS: ALBUMIN 2.5 g/dL (3.5-5.0); BILIRUBIN,TOTAL 0.6 mg/dL (0.2-1.0); CREATININE 5.4 mg/dL (0.5-1.5); PHOSPHORUS 5.1 mg/dL (2.5-4.9); TOTAL PROTEIN, SERUM 6.9 g/dL (6.0-8.3)
[2020-02-05] MEDS: MAG HYDROX/AL HYDROX/SIMETH 60 ML, LIDOCAINE HCL 2% VISCOUS 60 ML, DIPHENHYDRAMINE HCL ... PO SCH ×12 (06:00→18:07)
[2020-02-05] MEDS: INSULIN HUMULIN R 100 UNIT/ML 3ML SQ SCH ×4 (07:30→21:00)
[2020-02-05] MEDS: ZOSYN 3.375GM+NS 50ML 50 ML IV SCH ×2 (08:12→19:50)
[2020-02-05] MEDS: METOPROLOL TARTRATE 25 MG TAB PO SCH ×2 (08:13→19:50)
[2020-02-05] MEDS: BALSAM PERU/CASTOR OIL 60 GM TUBE TP SCH ×3 (08:13→22:01)
[2020-02-05] MEDS: POTASSIUM CHLORIDE 10% ELIXIR 20 MEQ/15 ML UDCUP PO SCH ×2 (12:38→15:23)
[2020-02-05] MEDS: FAMOTIDINE/PF 20 MG/2 ML VIAL IV SCH (19:49)
[2020-02-05] MEDS: ONDANSETRON HCL 4 MG/2 ML VIAL IV PRN (19:50)
[2020-02-06 03:55] VITALS: BP 122/71
[2020-02-06 05:23] LABS: BASOPHILS % (AUTO) 1.6 % (0.0-5.0); EOSINOPHILS % (AUTO) 0.1 % (0.0-8.0); HEMATOCRIT 32.1 % (36-48); LYMPHOCYTES % (AUTO) 5.6 % (21.0-51.0); MEAN CORPUSCULAR HEMOGLOBIN 26.1 pg (27.0-33.0); MEAN CORPUSCULAR HGB CONC 31.8 g/dL (32.0-36.0); MEAN CORPUSCULAR VOLUME 82.1 fL (79-99); MONOCYTES % (AUTO) 7.9 % (3.0-13.0); NEUTROPHILS % (AUTO) 77.1 % (40.0-77.0); PLATELET COUNT (AUTO) 426 K/uL (130-400); RED BLOOD CELL COUNT(AUTO) 3.91 MIL/uL (4.00-5.50); RED CELL DISTRIBUTION WIDTH 17.2 % (11.0-15.5); WHITE BLOOD COUNT (AUTO) 12.1 K/uL (4.8-10.8)
[2020-02-06 05:46] LABS: ALBUMIN 2.5 g/dL (3.5-5.0); CREATININE 3.9 mg/dL (0.5-1.5); MAGNESIUM 1.6 mg/dL (1.80-2.40)
[2020-02-06] MEDS: MAG HYDROX/AL HYDROX/SIMETH 60 ML, LIDOCAINE HCL 2% VISCOUS 60 ML, DIPHENHYDRAMINE HCL ... PO SCH ×18 (06:00→23:53)
[2020-02-06] MEDS: INSULIN HUMULIN R 100 UNIT/ML 3ML SQ SCH ×4 (06:47→20:24)
[2020-02-06] MEDS ORDERED: POTASSIUM CHLORIDE 20 MEQ ERTAB PO SCH ×2 (07:00→14:00)
[2020-02-06 08:00] VITALS: BP 125/70
[2020-02-06] MEDS: ZOSYN 3.375GM+NS 50ML 50 ML IV SCH ×2 (08:17→20:24)
[2020-02-06] MEDS: ONDANSETRON HCL 4 MG/2 ML VIAL IV PRN ×2 (08:17→12:12)
[2020-02-06] MEDS: EPOETIN ALFA-EPBX (ESRD) 10,000 UNIT/ML VIAL SQ SCH (09:00)
[2020-02-06 11:00] VITALS: BP 126/80
[2020-02-06] MEDS: BALSAM PERU/CASTOR OIL 60 GM TUBE TP SCH ×3 (12:04→20:34)
[2020-02-06] MEDS: METOPROLOL TARTRATE 25 MG TAB PO SCH ×2 (12:05→20:24)
[2020-02-06] MEDS ORDERED: ONDANSETRON HCL 4 MG/2 ML VIAL IV PRN (12:15)
[2020-02-06] MEDS ORDERED: MAGNESIUM 2GM PREMIX 50ML 50 ML IV SCH (14:00)
[2020-02-06] MEDS ORDERED: PHARMACY COMMUNICATION MISC SCH (14:00)
[2020-02-06 15:24] VITALS: BP 119/70
[2020-02-06 20:00] VITALS: BP 133/83
[2020-02-06] MEDS: FAMOTIDINE/PF 20 MG/2 ML VIAL IV SCH (20:24)
[2020-02-06 23:17] VITALS: BP 127/85
[2020-02-07 03:49] VITALS: BP 126/77
[2020-02-07 03:49] LABS: BASOPHILS % (AUTO) 1.7 % (0.0-5.0); EOSINOPHILS % (AUTO) 0.1 % (0.0-8.0); HEMATOCRIT 29.8 % (36-48); LYMPHOCYTES % (AUTO) 7.3 % (21.0-51.0); MEAN CORPUSCULAR HEMOGLOBIN 26.4 pg (27.0-33.0); MEAN CORPUSCULAR HGB CONC 32.2 g/dL (32.0-36.0); MEAN CORPUSCULAR VOLUME 82.1 fL (79-99); NEUTROPHILS % (AUTO) 77.7 % (40.0-77.0); PLATELET COUNT (AUTO) 441 K/uL (130-400); RED BLOOD CELL COUNT(AUTO) 3.63 MIL/uL (4.00-5.50); WHITE BLOOD COUNT (AUTO) 11.5 K/uL (4.8-10.8)
[2020-02-07 04:05] LABS: MAGNESIUM 2.2 mg/dL (1.80-2.40); PHOSPHORUS 4.2 mg/dL (2.5-4.9); POTASSIUM 3.3 mmol/L (3.5-5.1)
[2020-02-07] MEDS: MAG HYDROX/AL HYDROX/SIMETH 60 ML, LIDOCAINE HCL 2% VISCOUS 60 ML, DIPHENHYDRAMINE HCL ... PO SCH ×6 (06:00→12:00)
[2020-02-07] MEDS: INSULIN HUMULIN R 100 UNIT/ML 3ML SQ SCH ×2 (06:11→11:30)
[2020-02-07 08:04] VITALS: BP 125/76
[2020-02-07] MEDS: METOPROLOL TARTRATE 25 MG TAB PO SCH (10:04)
[2020-02-07] MEDS: ZOSYN 3.375GM+NS 50ML 50 ML IV SCH (10:04)
[2020-02-07] MEDS: BALSAM PERU/CASTOR OIL 60 GM TUBE TP SCH ×2 (10:10→14:00)
[2020-02-07 13:31] VITALS: BP 141/86
[2020-02-07] MEDS ORDERED: METO25 PO (15:26)
[2020-02-07] MEDS ORDERED: HEPARIN SODIUM/PF 100UNIT/ML 5ML SYRINGE IV SCH (16:15)
== END 2020-02-07 17:35 | disposition home or self-care (01) | DRG 720 ==
LOC: EDH 22:39 → EDHIP 22:40 → 2DH 01-20 20:53 → 2CH 01-21 08:28 → 4AH 01-27 18:30
PROVIDERS: ADMIT Internal Medicine; ATTEND Internal Medicine
PROC: 30233N1 Transfusion of Nonautologous Red Blood Cells into Peripheral Vein, Percutaneous Approach (ICD-10-PCS; principal; 2020-01-20)
PROC: 5A1D70Z Performance of Urinary Filtration, Intermittent, Less than 6 Hours Per Day (ICD-10-PCS; 2020-01-20)
PROC: 5A1945Z Respiratory Ventilation, 24-96 Consecutive Hours (ICD-10-PCS; 2020-01-20)
PROC: 0BH17EZ Insertion of Endotracheal Airway into Trachea, Via Natural or Artificial Opening (ICD-10-PCS; 2020-01-20)
PROC: 0BH17EZ Insertion of Endotracheal Airway into Trachea, Via Natural or Artificial Opening (ICD-10-PCS; 2020-01-20)
PROC: 5A1D70Z Performance of Urinary Filtration, Intermittent, Less than 6 Hours Per Day (ICD-10-PCS; 2020-01-21)
PROC: 5A1D70Z Performance of Urinary Filtration, Intermittent, Less than 6 Hours Per Day (ICD-10-PCS; 2020-01-22)
PROC: 5A1945Z Respiratory Ventilation, 24-96 Consecutive Hours (ICD-10-PCS; 2020-01-22)
PROC: 5A1D70Z Performance of Urinary Filtration, Intermittent, Less than 6 Hours Per Day (ICD-10-PCS; 2020-01-23)
PROC: 5A1D70Z Performance of Urinary Filtration, Intermittent, Less than 6 Hours Per Day (ICD-10-PCS; 2020-01-24)
PROC: 5A09357 Assistance with Respiratory Ventilation, Less than 24 Consecutive Hours, Continuous Positive Airway Pressure (ICD-10-PCS; 2020-01-25)
PROC: 5A1D70Z Performance of Urinary Filtration, Intermittent, Less than 6 Hours Per Day (ICD-10-PCS; 2020-01-26)
PROC: 5A1D70Z Performance of Urinary Filtration, Intermittent, Less than 6 Hours Per Day (ICD-10-PCS; 2020-01-30)
DX: A41.9 Sepsis, unspecified organism (principal); N17.0 Acute kidney failure with tubular necrosis; E87.5 Hyperkalemia; D64.9 Anemia, unspecified; I31.3 Pericardial effusion (noninflammatory); R65.21 Severe sepsis with septic shock; N39.0 Urinary tract infection, site not specified; R62.7 Adult failure to thrive; E87.6 Hypokalemia; J18.9 Pneumonia, unspecified organism; C34.90 Malignant neoplasm of unspecified part of unspecified bronchus or lung; E87.2 Acidosis; C37 Malignant neoplasm of thymus; E88.3 Tumor lysis syndrome; D61.810 Antineoplastic chemotherapy induced pancytopenia; D70.1 Agranulocytosis secondary to cancer chemotherapy; L89.312 Pressure ulcer of right buttock, stage 2; F41.9 Anxiety disorder, unspecified; B96.89 Other specified bacterial agents as the cause of diseases classified elsewhere; D69.59 Other secondary thrombocytopenia; E11.22 Type 2 diabetes mellitus with diabetic chronic kidney disease; I12.0 Hypertensive chronic kidney disease with stage 5 chronic kidney disease or end stage renal disease; J96.21 Acute and chronic respiratory failure with hypoxia; K12.30 Oral mucositis (ulcerative), unspecified; J91.0 Malignant pleural effusion; N18.6 End stage renal disease; E83.39 Other disorders of phosphorus metabolism; E79.0 Hyperuricemia without signs of inflammatory arthritis and tophaceous disease; R53.81 Other malaise; B96.1 Klebsiella pneumoniae [K. pneumoniae] as the cause of diseases classified elsewhere; E87.8 Other disorders of electrolyte and fluid balance, not elsewhere classified; T45.1X5A Adverse effect of antineoplastic and immunosuppressive drugs, initial encounter; Z68.27 Body mass index [BMI] 27.0-27.9, adult; Z85.72 Personal history of non-Hodgkin lymphomas; Y92.89 Other specified places as the place of occurrence of the external cause; Z74.01 Bed confinement status; Z90.2 Acquired absence of lung [part of]; Z99.2 Dependence on renal dialysis; Z88.2 Allergy status to sulfonamides; Z88.8 Allergy status to other drugs, medicaments and biological substances; Z82.5 Family history of asthma and other chronic lower respiratory diseases; Z83.3 Family history of diabetes mellitus; Z83.6 Family history of other diseases of the respiratory system; Z82.0 Family history of epilepsy and other diseases of the nervous system; Z82.49 Family history of ischemic heart disease and other diseases of the circulatory system; Z20.828 Contact with and (suspected) exposure to other viral communicable diseases; E44.0 Moderate protein-calorie malnutrition
CPT/HCPCS: 31500; 36415; 36430; 36600; 71045; 73110; 76770; 80048; 80053; 80061; 80074; 80076; 81001; 82040; 82435; 82550; 82570; 82728; 82803; 82947; 82948; 83036; 83540; 83550; 83605; 83735; 83880; 84100; 84132; 84145; 84295; 84300; 84484; 84520; 84550; 85014; 85018; 85025; 85384; 85610; 85730; 86140; 86701; 86850; 86900; 86901; 86923; 87040; 87077; 87088; 87186; 87390; 87426; 87804; 87880; 90935; 92526; 92610; 93005; 93306; 93308; 93971; 94002; 94003; 94640; 94660; 94664; 97039; C9113; G0378; J0461; J0610; J0696; J1170; J1265; J1642; J1644; J1815; J1940; J2250; J2405; J2543; J2704; J2920; J3010; J3370; J3475; J3490; J7030; J7042; J7050; J7070; P9016; Q9967; U0003

== ENCOUNTER 2020-12-03 16:52 | Inpatient (IN) | payer MEDICAID ==
[~2020-12-03] VITALS: Ht 152.4 cm; Wt 52.5 kg
[~2020-12-03 16:52] MED LIST changes: +HYDR-3421 PO; +METO25 PO; +ONDA8TAB12 PO
[2020-12-03 17:40] LABS: BASOPHILS % (AUTO) 0.2 % (0.0-5.0); HEMATOCRIT 25.1 % (36-48); MEAN CORPUSCULAR HEMOGLOBIN 28.3 pg (27.0-33.0); MEAN CORPUSCULAR HGB CONC 27.9 g/dL (32.0-36.0); MEAN CORPUSCULAR VOLUME 101.6 fL (79-99); MONOCYTES % (AUTO) 7.7 % (3.0-13.0); NEUTROPHILS % (AUTO) 79.8 % (40.0-77.0); PLATELET COUNT (AUTO) 263 K/uL (130-400); RED BLOOD CELL COUNT(AUTO) 2.47 MIL/uL (4.00-5.50); RED CELL DISTRIBUTION WIDTH 16.2 % (11.0-15.5); WHITE BLOOD COUNT (AUTO) 17.5 K/uL (4.8-10.8)
[2020-12-03 18:02] LABS: ALBUMIN 2.9 g/dL (3.5-5.0); BILIRUBIN,TOTAL 0.5 mg/dL (0.2-1.0); CREATININE 1.1 mg/dL (0.5-1.5); POTASSIUM 4.7 mmol/L (3.5-5.1); TOTAL PROTEIN, SERUM 6.9 g/dL (6.0-8.3)
[2020-12-03] MEDS ORDERED: FUROSEMIDE 40MG VIAL IV STA (18:03)
[2020-12-03 18:26] LABS: ABG OXYGEN SATURATION 98.4 % (95.0-99.0); ABG PCO2 71 mmHg (32-45)
[2020-12-03 19:07] LABS: APPEARANCE,URINE Clear (CLEAR); BILIRUBIN,URINE Negative (NEGATIVE); COLOR,URINE Yellow (YELLOW); GLUCOSE, URINE (UA) Negative (NEGATIVE); KETONES,URINE Negative (NEGATIVE); LEUKOCYTE ESTERASE ,URINE Negative (NEGATIVE); NITRATE,URINE Negative (NEGATIVE); OCCULT BLOOD,URINE Trace (NEGATIVE); PH,URINE 5.5 (5.0-8.0); PROTEIN,URINE Trace mg/dL (NEGATIVE); UROBILINOGEN,URINE 0.2 mg/dL (0.2-1.0)
[2020-12-03 19:19] LABS: BACTERIA,URINE Few /HPF (None Seen); MUCUS,URINE Few LPF (None Seen); RBC,URINE 0-1 /HPF (0-1); SQUAMOUS EPITHELIAL CELL,UR Few /HPF (0-2)
[2020-12-03] MEDS ORDERED: IOHEXOL-350 75 ML VIAL IV ONE ×2 (20:14→21:07)
[2020-12-03] MEDS ORDERED: NITROGLYCERIN 0.4 MG SL TAB SL PRN (21:30)
[2020-12-03] MEDS ORDERED: ONDANSETRON 4MG INJ IV PRN (21:30)
[2020-12-03] MEDS ORDERED: GLUCAGON 1MG KIT 1 MG ML IM PRN (21:30)
[2020-12-03] MEDS ORDERED: DEXTROSE 50%-WATER 50 ML DISP.SYRIN IV PRN (21:30)
[2020-12-03] MEDS ORDERED: ACETAMINOPHEN 325 MG TAB PO PRN ×2 (21:30)
[2020-12-03 22:16] LABS: INR 1.21 (0.85-1.15)
[2020-12-03 22:18] LABS: PARTIAL THROMBOPLASTIN TIME 30.5 SEC (26.3-35.5)
[2020-12-03 22:34] LABS: HEMOGLOBIN A1C 4.6 % (4.0-6.0)
[2020-12-03 23:08] LABS: % IRON SATURATION 16.2 % (22-44)
[2020-12-04] MEDS ORDERED: MORPHINE 2 MG SYG IVP ONE (02:00)
[2020-12-04 02:15] VITALS: BP 104/65
[2020-12-04] MEDS ORDERED: DRON10CA5 PO (03:55)
[2020-12-04 04:00] VITALS: BP 98/60
[2020-12-04 05:43] LABS: BASOPHILS % (AUTO) 0.1 % (0.0-5.0); EOSINOPHILS % (AUTO) 0.1 % (0.0-8.0); HEMATOCRIT 27.5 % (36-48); LYMPHOCYTES % (AUTO) 14.6 % (21.0-51.0); MEAN CORPUSCULAR HEMOGLOBIN 28.1 pg (27.0-33.0); MEAN CORPUSCULAR HGB CONC 28.7 g/dL (32.0-36.0); MEAN CORPUSCULAR VOLUME 97.9 fL (79-99); MONOCYTES % (AUTO) 10.1 % (3.0-13.0); NEUTROPHILS % (AUTO) 74.1 % (40.0-77.0); PLATELET COUNT (AUTO) 257 K/uL (130-400); RED BLOOD CELL COUNT(AUTO) 2.81 MIL/uL (4.00-5.50); RED CELL DISTRIBUTION WIDTH 18.5 % (11.0-15.5); WHITE BLOOD COUNT (AUTO) 14.7 K/uL (4.8-10.8)
[2020-12-04 06:01] LABS: ALBUMIN 2.7 g/dL (3.5-5.0); BILIRUBIN,TOTAL 0.8 mg/dL (0.2-1.0); CREATININE 1.2 mg/dL (0.5-1.5); MAGNESIUM 1.9 mg/dL (1.80-2.40); POTASSIUM 4.5 mmol/L (3.5-5.1); TOTAL PROTEIN, SERUM 6.5 g/dL (6.0-8.3)
[2020-12-04 06:39] LABS: ABG BASE EXCESS 11.6 mmol/L (-2.0-3.0); ABG OXYGEN SATURATION 93.8 % (95.0-99.0); ABG PCO2 72 mmHg (32-45)
[2020-12-04] MEDS ORDERED: INSULIN HUMULIN R 100 UNIT/ML 3ML SQ SCH (07:30)
[2020-12-04 07:53] VITALS: BP 98/62
[2020-12-04] MEDS ORDERED: ZOSYN 3.375GM+NS 50ML 50 ML IV SCH (08:30)
[2020-12-04] MEDS: FAMOTIDINE 20MG TAB PO SCH ×2 (09:26→20:16)
[2020-12-04] MEDS ORDERED: COMPOUND IV MISC 1 EACH IVSOLN MISC PRN (10:30)
[2020-12-04] MEDS ORDERED: ZOSYN 3.375GM +NS 50ML IV SCH ×2 (11:00)
[2020-12-04] MEDS ORDERED: SODIUM CHLORIDE 3% FOR INHALATION 4 ML/AMP VIAL.NEB IH ONE ×2 (11:03→18:21)
[2020-12-04 11:37] VITALS: BP 109/70
[2020-12-04] MEDS: IRON SUCROSE COMPLEX 300 MG in 0.9%NACL 50ML 50 ML IV SCH (11:55)
[2020-12-04] MEDS ORDERED: IPRAHFA IH (12:27)
[2020-12-04] MEDS ORDERED: IPRNEB IH (12:27)
[2020-12-04] MEDS ORDERED: ONDA8TAB12 PO (12:27)
[2020-12-04] MEDS ORDERED: BENZ200C53 PO (12:27)
[2020-12-04] MEDS ORDERED: MORP-108 PO (12:27)
[2020-12-04] MEDS ORDERED: ACET-2247 PO (12:27)
[2020-12-04] MEDS ORDERED: HYDR-4060 PO (12:27)
[2020-12-04] MEDS: ZOSYN 3.375GM+NS 50ML 50 ML IV SCH ×2 (13:54→20:16)
[2020-12-04 15:51] VITALS: BP 97/66
[2020-12-04 19:00] VITALS: BP 100/69
[2020-12-05] VITALS: BP 97/63
[2020-12-05 03:35] LABS: ABG BASE EXCESS 12.9 mmol/L (-2.0-3.0); ABG HCO3 41.1 mmol/L (21.0-28.0); ABG OXYGEN SATURATION 97.1 % (95.0-99.0); ABG PCO2 81 mmHg (32-45)
[2020-12-05 04:00] VITALS: BP 102/69
[2020-12-05 04:33] LABS: BASOPHILS % (AUTO) 0.1 % (0.0-5.0); EOSINOPHILS % (AUTO) 0.2 % (0.0-8.0); HEMATOCRIT 30.1 % (36-48); LYMPHOCYTES % (AUTO) 18.7 % (21.0-51.0); MEAN CORPUSCULAR HEMOGLOBIN 28.1 pg (27.0-33.0); MEAN CORPUSCULAR HGB CONC 28.2 g/dL (32.0-36.0); MEAN CORPUSCULAR VOLUME 99.7 fL (79-99); MONOCYTES % (AUTO) 9.8 % (3.0-13.0); NEUTROPHILS % (AUTO) 69.4 % (40.0-77.0); PLATELET COUNT (AUTO) 267 K/uL (130-400); RED BLOOD CELL COUNT(AUTO) 3.02 MIL/uL (4.00-5.50); RED CELL DISTRIBUTION WIDTH 18.1 % (11.0-15.5); WHITE BLOOD COUNT (AUTO) 12.5 K/uL (4.8-10.8)
[2020-12-05 04:49] LABS: ALBUMIN 2.7 g/dL (3.5-5.0); BILIRUBIN,TOTAL 0.4 mg/dL (0.2-1.0); CREATININE 1.1 mg/dL (0.5-1.5); MAGNESIUM 1.7 mg/dL (1.80-2.40); POTASSIUM 3.2 mmol/L (3.5-5.1); TOTAL PROTEIN, SERUM 6.9 g/dL (6.0-8.3)
[2020-12-05] MEDS: ZOSYN 3.375GM+NS 50ML 50 ML IV SCH ×3 (05:07→21:51)
[2020-12-05] MEDS ORDERED: SODIUM CHLORIDE 3% FOR INHALATION 4 ML/AMP VIAL.NEB IH ONE (06:13)
[2020-12-05 08:04] VITALS: BP 102/67
[2020-12-05 08:53] LABS: ABG BASE EXCESS 15.3 mmol/L (-2.0-3.0); ABG OXYGEN SATURATION 95.2 % (95.0-99.0); ABG PCO2 96 mmHg (32-45)
[2020-12-05] MEDS ORDERED: EPOETIN ALFA-EPBX (NON-ESRD) 10,000 UNIT/ML VIAL SQ SCH (09:00)
[2020-12-05] MEDS: FAMOTIDINE 20MG TAB PO SCH ×2 (10:03→21:51)
[2020-12-05] MEDS: IRON SUCROSE COMPLEX 300 MG in 0.9%NACL 50ML 50 ML IV SCH (10:05)
[2020-12-05] MEDS ORDERED: KCL 20 MEQ ERTAB PO PRN (11:00)
[2020-12-05] MEDS ORDERED: LIDOCAINE HCL-MPF 1% 2ML VIAL IV PRN (11:00)
[2020-12-05] MEDS ORDERED: POTASSIUM CHLORIDE 10% ELIXIR 20 MEQ/15 ML UDCUP PO PRN (11:00)
[2020-12-05] MEDS ORDERED: MAGNESIUM 2GM PREMIX 50ML 50 ML IV PRN (11:00)
[2020-12-05] MEDS ORDERED: POTASSIUM CHLORIDE 20MEQ/100ML 100 ML IV PRN (11:00)
[2020-12-05] MEDS: DEXTROSE 5 %-0.45 % NACL 1,000 ML IV SCH (11:33)
[2020-12-05 12:00] VITALS: BP 116/65
[2020-12-05 13:57] LABS: ABG BASE EXCESS 14.2 mmol/L (-2.0-3.0); ABG HCO3 44.5 mmol/L (21.0-28.0); ABG OXYGEN SATURATION 94.8 % (95.0-99.0); ABG PCO2 84 mmHg (32-45)
[2020-12-05 16:00] VITALS: BP 91/60
[2020-12-05 20:00] VITALS: BP 106/65
[2020-12-06] VITALS: BP 103/71
[2020-12-06 04:00] VITALS: BP 102/73
[2020-12-06 05:54] LABS: BASOPHILS % (AUTO) 0.1 % (0.0-5.0); EOSINOPHILS % (AUTO) 0.4 % (0.0-8.0); HEMATOCRIT 27.2 % (36-48); LYMPHOCYTES % (AUTO) 26.2 % (21.0-51.0); MEAN CORPUSCULAR HEMOGLOBIN 28.4 pg (27.0-33.0); MEAN CORPUSCULAR HGB CONC 28.7 g/dL (32.0-36.0); MEAN CORPUSCULAR VOLUME 98.9 fL (79-99); MONOCYTES % (AUTO) 11.2 % (3.0-13.0); NEUTROPHILS % (AUTO) 60.3 % (40.0-77.0); PLATELET COUNT (AUTO) 234 K/uL (130-400); RED BLOOD CELL COUNT(AUTO) 2.75 MIL/uL (4.00-5.50); RED CELL DISTRIBUTION WIDTH 17.3 % (11.0-15.5); WHITE BLOOD COUNT (AUTO) 9.3 K/uL (4.8-10.8)
[2020-12-06] MEDS: ZOSYN 3.375GM+NS 50ML 50 ML IV SCH ×2 (05:55→13:36)
[2020-12-06] MEDS: DEXTROSE 5 %-0.45 % NACL 1,000 ML IV SCH (05:55)
[2020-12-06 06:16] LABS: ALBUMIN 2.4 g/dL (3.5-5.0); BILIRUBIN,TOTAL 0.4 mg/dL (0.2-1.0); POTASSIUM 4.2 mmol/L (3.5-5.1)
[2020-12-06 08:00] VITALS: BP 108/62
[2020-12-06] MEDS: LUBIPROSTONE 24 MCG CAP PO SCH ×2 (08:00→13:55)
[2020-12-06] MEDS: IRON SUCROSE COMPLEX 300 MG in 0.9%NACL 50ML 50 ML IV SCH (11:00)
[2020-12-06] MEDS: FAMOTIDINE 20MG TAB PO SCH (11:06)
[2020-12-06 12:00] VITALS: BP 101/59
[2020-12-06 16:00] VITALS: BP 132/69
== END 2020-12-06 16:45 | disposition hospice, home (50) | DRG 133 ==
LOC: EDH 16:52 → EDHIP 16:53 → 4BH 12-04 02:12
PROVIDERS: ADMIT Internal Medicine; ATTEND Internal Medicine
PROC: 30233N1 Transfusion of Nonautologous Red Blood Cells into Peripheral Vein, Percutaneous Approach (ICD-10-PCS; principal; 2020-12-03)
PROC: 5A09357 Assistance with Respiratory Ventilation, Less than 24 Consecutive Hours, Continuous Positive Airway Pressure (ICD-10-PCS; 2020-12-03)
PROC: 5A09357 Assistance with Respiratory Ventilation, Less than 24 Consecutive Hours, Continuous Positive Airway Pressure (ICD-10-PCS; 2020-12-04)
PROC: 5A09357 Assistance with Respiratory Ventilation, Less than 24 Consecutive Hours, Continuous Positive Airway Pressure (ICD-10-PCS; 2020-12-05)
PROC: 5A09357 Assistance with Respiratory Ventilation, Less than 24 Consecutive Hours, Continuous Positive Airway Pressure (ICD-10-PCS; 2020-12-06)
DX: J96.02 Acute respiratory failure with hypercapnia (principal); E43 Unspecified severe protein-calorie malnutrition; E87.4 Mixed disorder of acid-base balance; R64 Cachexia; C37 Malignant neoplasm of thymus; E86.0 Dehydration; D63.0 Anemia in neoplastic disease; J96.01 Acute respiratory failure with hypoxia; R62.7 Adult failure to thrive; R79.89 Other specified abnormal findings of blood chemistry; Z20.822 Contact with and (suspected) exposure to COVID-19; Z68.22 Body mass index [BMI] 22.0-22.9, adult; Z88.2 Allergy status to sulfonamides; Z88.8 Allergy status to other drugs, medicaments and biological substances; Z85.118 Personal history of other malignant neoplasm of bronchus and lung; Z83.6 Family history of other diseases of the respiratory system; Z83.3 Family history of diabetes mellitus; Z82.49 Family history of ischemic heart disease and other diseases of the circulatory system; Z82.0 Family history of epilepsy and other diseases of the nervous system
CPT/HCPCS: 36415; 36600; 71045; 71275; 80053; 81001; 82306; 82435; 82550; 82607; 82728; 82746; 82803; 82947; 82948; 82977; 83036; 83540; 83550; 83605; 83735; 83874; 83880; 84100; 84132; 84145; 84295; 84484; 85014; 85018; 85025; 85610; 85730; 86850; 86900; 86901; 86923; 87040; 87071; 87088; 87205; 87635; 87641; 92610; 93005; 94640; 94660; 99291; C9803; G0378; J1756; J1940; J2543; J3480; J7042; P9016; Q9967